=== PATIENT | female | born 1985 | race African-American/Black ===

== ENCOUNTER 2020-07-16 12:45 | Outpatient (RCR) | payer MEDICARE, MEDICAID, SELFPAY ==
--- NOTE | 2020-07-15 14:07 | P.HPPS_ITS ---
HPI Chief Complaint: depression Sources of Information: patient interviewed, chart reviewed and crisis/core team assessment reviewed HPI Narrative: Pt is a 35 year-old woman with hx of Bipolar Disorder, substance use who was referred to PHP by sba business development officer due to irritability, depressed mood. She was released from senior care September2019 for case of A&B. Pt reports regular use of PCP. She notes that she is more explosive and combative when using substances. She denies suicidal or homicidal ideation. She does not think she is particularly depressed but notes that irritability and explosive behaviors are problematic. Pt appeared with fluctuating levels of somnolence during our interview. She also appeared to have connectivity issues which limited this virtual assessment. We discussed starting mood stabilizer and other medications such as atypical antipsychotic for impulsive and explosive behaviors. Past Psychiatric History: Inpatient: one admission at [facility] few years ago Therapist: POPEYE Herbert Medical Evaluation Reviewed: Yes [facility] Surgical History (Updated 08/02/20 @ 11:[address] [facility]) History of lung surgery Meds/Allergies Allergies Allergies Allergy/AdvReac Type Severity Reaction Status Date / Time No Known Allergies Allergy Verified 08/02/20 11:50 Mental Status Exam Mental Status Exam Narrative: Appearance: MO casually groomed, fair hygiene, in NAD Behavior: calm, superficially cooperative Psychomotor: no agitation or retardation noted Speech: clear, normal rate/rhythm/volume, spontaneous TP: linear TC: no signs of psychosis, feeling better Mood: okay Affect:congruent, somewhat somnolent at times SI:none HI:none AH/VH:none Delusions:none Insight/judgment:poor x 2. Memory/cog:alert, oriented x 3.
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
--- NOTE | 2020-07-15 15:16 | PC.NURSE ---
Case opened in tx team
--- NOTE | 2020-07-16 12:03 | PC.NURSE ---
Spoke with pt after clinician reported that she had relapsed last night and the other reported she was not in second group. Discussed a referral to a substance use specific IOP. She was agreeable. She sound disoriented as if she just woke up. She denied using today or napping. She will finish groups today and DC to substance IOP.
--- NOTE | 2020-07-16 14:29 | PC.NURSE ---
The client called because she states that she wasn't let into the last group. I asked her if she did the morning groups and she stated that she was in groups all morning. I asked her if she spoke with Bree earlier and she said no. I told her I would have Bree call her.
--- NOTE | 2020-07-16 14:38 | PC.NURSE ---
Spoke with pt regarding previous phone conversation and her report of relapse. She seemed confused but reported she did remember. She reported that she relapsed with marjuana not PCP when she had reported she relapsed with PCP during the previous conversation. Discussed the referral for [facility] substance use IOP. Provided pt with [facility]'s information for her to call for an appointment. Sent referral to [facility].
--- NOTE | 2020-07-16 15:11 | PC.NURSE ---
Pt called back to ask why we kicked her out of the program. Explained that we did not kick her out but our clinical opinion is she would be best served by a substance use IOP. Informed her that the referral was sent to [facility] and she could call for an appointment. She agreed.
--- NOTE | 2020-07-19 09:42 | PC.NURSE ---
Spoke with foreign policy officer this morning to discuss the reason for referring the pt to [facility]. Pt had denied relapsing to foreign policy officer. Discussed the events of Sunday and recommended that pt attend [facility] and come back when she has completed that program. mortgage loan officer originator reported understanding.
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
== END 2020-07-16 23:55 | disposition home or self-care (01) ==
LOC: HO.PHPA 12:45
PROVIDERS: Visit Provider Psychiatry & Neurology Psychiatry
DX: F63.81 Intermittent explosive disorder (principal); F16.10 Hallucinogen abuse, uncomplicated
CPT/HCPCS: 90791; 90853

== ENCOUNTER → 2020-08-02 10:13 | Outpatient (BNVA) | payer MEDICARE, MEDICAID, SELFPAY | PROVIDERS: PCP Internal Medicine; Visit Provider Surgery | DX: E66.01 Morbid (severe) obesity due to excess calories (principal); Z68.43 Body mass index [BMI] 50.0-59.9, adult; Z71.3 Dietary counseling and surveillance | CPT/HCPCS: Q3014 ==

== ENCOUNTER 2020-08-03 15:21 | Outpatient (REF) | payer MEDICARE, MEDICAID, SELFPAY ==
--- NOTE | ~2020-08-03 | XR_ITS ---
EXAMINATION: XR CHEST CLINICAL INFORMATION: Obesity COMPARISON: None TECHNIQUE: 2 views of the chest were obtained. FINDINGS: The cardiac and mediastinal contours are normal. There is a 1.5 x 1.7 cm nodular density that projects over the left upper lobe. This may be artifactual related to overlapping vessels and left first rib costochondral cartilage. The lungs are otherwise clear. There is no pleural effusion or pneumothorax. Bony structures are unremarkable. XR/XR chest 2V IMPRESSION: 1.5 x 1.7 cm nodular density projecting over the left upper lobe. This may be artifactual related to overlapping vessels and left first rib costochondral cartilage. Apical lordotic view of the chest recommended.
[2020-08-03 15:56] LABS: MANUAL DIFF FLAG NO
[2020-08-03 16:01] LABS: Basophils Percent Auto 0.2 % (0-2); Eosinophils Absolute Auto 0.1 X10*3/uL (0.0-0.4); Eosinophils Percent Auto 0.6 % (0-4); Hematocrit 41.7 % (37-47); Hemoglobin 13.5 g/dl (12.0-16.0); Imm Gran Abs Auto 0.02 X10*3/uL (0.00-0.03); Imm Gran Pct Auto 0.2 % (0.0-0.4); Lymphocytes Absolute Auto 2.6 X10*3/uL (1.2-4.9); Lymphocytes Percent Auto 25.3 % (20-40); Mean Corpuscular HGB Conc 32.4 g/dl (31.0-35.0); Mean Corpuscular Hemoglobin 29.8 pg (27.0-33.0); Mean Corpuscular Volume 92.1 fL (80-98); Monocytes Absolute Auto 0.5 X10*3/uL (0.1-1.2); Monocytes Percent Auto 4.6 % (2-11); Neutrophils Percent Auto 69.1 % (45-73); Platelet Count 257 X10*3/uL (160-400); Red Blood Count 4.53 X10*6/uL (4.20-5.50); Red Cell Distribution Width 13.1 % (11.0-16.0); White Blood Count 10.1 X10*3/uL (4.8-10.8)
[2020-08-03 16:35] LABS: Alanine Aminotransferase 19 U/L (0-31); Albumin Level 4.1 g/dL (3.5-5.0); Alkaline Phosphatase 68 U/L (39-117); Anion Gap 14 (12-20); Aspartate Amino Transferase 16 U/L (5-31); Bilirubin Total 0.5 mg/dL (0.0-1.0); Blood Urea Nitrogen 8 mg/dL (9-16); C Reactive Protein 0.23 mg/dL (< or = 0.50); Calcium 9.1 mg/dL (8.4-10.2); Carbon Dioxide 27 mmol/L (22-29); Chloride 106 mmol/L (96-108); Cholesterol 211 mg/dL; Estimated Glomerular Filt Rate > 60; Glucose Random 91 mg/dL (60-115); HDL Cholesterol 65 mg/dL; LDL Cholesterol Calculated 129 mg/dl; Sodium 143 mmol/L (135-145); Total Protein 7.2 g/dL (6.5-8.0); Triglycerides 85 mg/dL
[2020-08-03 17:03] LABS: TSH reflex Free T4 0.97 uIU/mL (0.32-4.0); Vitamin D 25-OH Total 12.4 ng/mL (>30)
[2020-08-03 17:06] LABS: Folate 15.4 ng/mL (> or = 4.0); Vitamin B12 305 pg/mL (200-900)
[2020-08-03 17:35] LABS: Ferritin 71 ng/mL (10-122)
[2020-08-04 08:10] LABS: Estimated Average Glucose 103 mg/dL; Hemoglobin A1c % 5.2 %
[2020-08-04 09:02] LABS: Insulin Level Total 6.8 uIU/mL
[2020-08-04 17:51] LABS: Calcium (PTHI) 9.2 mg/dL (8.6-10.2); PTHI 49 pg/mL (14-64)
[2020-08-06 07:22] LABS: Zinc 71 mcg/dL (60-130)
[2020-08-07 10:57] LABS: Vitamin B1 16 nmol/L (8-30)
[2020-08-07 22:02] LABS: Vitamin A 62 mcg/dL (38-98)
== END 2020-08-03 15:22 | disposition home or self-care (01) ==
LOC: HO.LAB 15:21
PROVIDERS: PCP Internal Medicine; Visit Provider Surgery
DX: E66.01 Morbid (severe) obesity due to excess calories (principal)
CPT/HCPCS: 36415; 71046; 80053; 80061; 82306; 82607; 82728; 82746; 83036; 83525; 83970; 84425; 84443; 84590; 84630; 85025; 86140

== ENCOUNTER 2020-08-18 12:51 | Outpatient (REF) | payer OTHER, SELFPAY ==
--- NOTE | ~2020-08-18 | US_ITS ---
EXAMINATION: US COMPLETE ABDOMEN WITH LIVER ELASTOGRAPHY CLINICAL INFORMATION: Obesity COMPARISON: None. TECHNIQUE: Real-time imaging of the abdominal viscera. Noninvasive ultrasound liver fibrosis assessment is performed using Jolene ElastPQ point quantification shear wave elastography (pSWE) with a C5-2 MHz transducer. Multiple elastography samples are obtained. FINDINGS: PANCREAS: The visualized pancreatic head and body are normal in appearance. The remainder of the pancreas is obscured from visualization by the overlying bowel gas. ABDOMINAL AORTA: The proximal, middle, and distal aortic segments are normal in caliber. INFERIOR VENA CAVA: Visualized portions are normal. LIVER: Liver echotexture is increased. The liver is slightly enlarged. The liver contour is normal. No focal lesion or intrahepatic biliary duct dilatation. The right lobe measures 19 cm in length. The left lobe measures 15 cm in length. Portal flow is normal/hepatopedal Shear wave liver elastography median stiffness is 1.9 m/s (reference: normal median stiffness is 1.3 m/s or less). IQR/median stiffness to assess sampling precision is 0.5 (reference: good quality data set is IQR/median stiffness of 0.15 or less). GALLBLADDER: Normal. The gallbladder is physiologically distended without evidence of stones, sludge, polyps, wall thickening or pericholecystic fluid. COMMON BILE DUCT: Normal in caliber measuring 0.5 cm in diameter. RIGHT KIDNEY: Normal. No hydronephrosis. No renal calculi or focal parenchymal lesions. The kidney measures 10.5 cm in maximum dimension. LEFT KIDNEY: Normal. No hydronephrosis. No renal calculi or focal parenchymal lesions. The kidney measures 10.3 cm in maximum dimension. SPLEEN: Normal. The spleen measures 10.3 cm in maximum dimension. FREE FLUID: None. US/US abdomen comp w elastography IMPRESSION: 1. Impression: Enlarged echogenic liver probably representing fatty infiltration. Limited visualization of the tail of the pancreas. 2. Liver elastography: Limited due to sampling error. REFERENCE: Society of Radiologists in Ultrasound Liver Stiffness Thresholds (2020): LIVER STIFFNESS THRESHOLDS: *Liver Stiffness equal or less than 1.3 m/s: High probability of being normal. *Liver Stiffness less than 1.7 m/s: In the absence of other known clinical signs, rules out compensated advanced chronic liver disease. *Liver Stiffness 1.7-2.1 m/s: Suggestive of compensated advanced chronic liver disease but need further test for confirmation. *Liver Stiffness over 2.1 m/s: Rules in compensated advanced chronic liver disease. *Liver Stiffness over 2.4 m/s: Suggestive of clinically significant portal hypertension. QUALITY OF DATA SET: *IQR/Median value equal or less than 0.15 implies a quality data set. *IQR/Median value over 0.15 implies a poor quality data set. SIGNIFICANT CHANGE FROM PRIOR EXAM: Significant change if liver stiffness measurement is 10% or greater from prior exam. OTHER CONSIDERATIONS: The stage of liver fibrosis may be overestimated in the setting of acute hepatitis, liver inflammation, elevated liver function tests, hepatic vascular congestion, obstructive cholestasis, non-fasting state, and infiltrative diseases such as amyloidosis and lymphoma. In some patients with NAFLD, the liver stiffness thresholds for compensated advanced chronic liver disease may be lower. In causes other than viral hepatitis and NAFLD, liver stiffness thresholds are not well established.
== END 2020-08-18 12:52 | disposition home or self-care (01) ==
LOC: HO.US 12:51
PROVIDERS: Visit Provider Surgery
DX: E66.01 Morbid (severe) obesity due to excess calories (principal)
CPT/HCPCS: 76705; 76981

== ENCOUNTER → 2020-08-27 08:21 | Outpatient (BNVA) | payer OTHER, SELFPAY | PROVIDERS: PCP Internal Medicine; Visit Provider Surgery | DX: E66.01 Morbid (severe) obesity due to excess calories (principal); Z68.43 Body mass index [BMI] 50.0-59.9, adult | CPT/HCPCS: Q3014 ==

== ENCOUNTER → 2020-09-03 07:56 | Outpatient (BNVA) | payer OTHER, SELFPAY | PROVIDERS: PCP Internal Medicine; Visit Provider Dietitian, Registered ==

== ENCOUNTER → 2024-12-03 15:18 | Outpatient (BNVA) | payer OTHER, SELFPAY | PROVIDERS: PCP Internal Medicine; Visit Provider Anesthesiology | DX: M53.3 Sacrococcygeal disorders, not elsewhere classified (principal); M46.1 Sacroiliitis, not elsewhere classified; E66.01 Morbid (severe) obesity due to excess calories; Z68.44 Body mass index [BMI] 60.0-69.9, adult | CPT/HCPCS: 99202 ==

== ENCOUNTER 2025-01-27 06:25 | Outpatient (REF) | payer OTHER, SELFPAY ==
--- OUTSIDE RECORDS SUMMARY | 2024-11-03 07:30 | XMS_ITS ---
Author Organization [facility] [address] Address [address] [place] [address] Care Team Providers Care Stretcher Operator Name Role Phone VERITO LEGER Unavailable [phone] Encounters Encounter Location Date Provider Diagnosis [facility] [address] [place] [address] 11/03/2024 VERITO LEGER Plan Of Treatment Next Appt Details Provider Name:VERITO LEGER, 02/04/2025 11:00:00 AM, [address], [address], [place], [address], Progress Notes * Rajani PATTENDOB: 7 (39 yo F)Acc No.[id number]:11/03/2024 Patient: Lawrence FOFANA Rajani Provider: Magy LEGER NP :1985 A ge:39 Y S ex:Female Date:11/03/2024 Address:[address] [place], [place] [address] [id number] Subjective: * Chief Complaints: * * Medical History: Objective: * Vitals: Assessment: Plan: * Treatment: * Images: Billing Information: * Visit Code: * Procedure Codes: * Electronic signature of DARREN LEGER on 01/27/2025 at 06:27 AM EDT Sign off status: Pending * Provider: Magy LEGER NP Date: 11/03/2024 Generated for Printi ng/Faxing/eTransmitting on: 01/27/2025 06:27 AM EDT
--- OUTSIDE RECORDS SUMMARY | 2024-11-12 10:15 | XMS_ITS ---
Author Organization [facility] [address] Address [address] [place] [address] Care Team Providers Care Acre[employer] Reporter Name Role Phone KEVINVERITO SOMMER Unavailable [phone] Medications Medication SIG (Take, Route, Fr equency, Duration) Notes Start Date End Date Status Gabapentin 600 MG 1 tablet Orally Once a day Active Zepbound 2.5 MG/0.5ML 2.5 mg weekly Subc utaneous Weekly; Duration: 30 days Active Encounters Encounter Location Date Provider Diagnosis [facility] [address] [facility] [address] [place] [address] 11/12/2024 VERITO LEGER Morbid obesity due t o excess calories E66.01 ; BMI 60.0-69.9, adult Z68.44 ; Dietary counseling and surveillance Z71.3 ; Vitamin D deficiency E55.9 ; GABRIELLA (obstructive sleep apnea) G47.33 ; Daytime somnolence R40.0 ; Snoring R06.83 and Encounter for examination of blood pressure without abnormal findings Z01.30 Assessments Encounter Date Diagnosis (ICD Code) Assessment Notes Treatment Notes Treatment Clinical Notes Section Notes 11/12/2024 Morbid obesity due to excess calories (ICD-10 - E66.01) #Weight Management 11/12/2024 We discussed the new surmount GABRIELLA trial and indication for tirzepatide Euglycemic A1c Labs reviewed Sleep study Zepbound 2.5 Total time spent today was 30 minutes of which greater than 50% was spent on coordinating and counseling Patient has been found to be obese with a BMI of (62). Patient has class (3) obesity. We are a board certified obesity and weight management practice Patient has trialed behavioral modification, dietary restrictions and exercise for a minimum of 6 months The most recent [place] [employer] clinical endocrinologists and [place] [employer] guidelines recommend patients who have overweight BMI or obesity BMI, who also have metabolic syndrome, prediabetes, HLD, and other comorbidities or at risk of developing type 2 diabetes should aim for a weight loss goal of at least 10% of the baseline body weight Patient counseled regarding effects of GLP/GIP-1 agonists, and other FDA approved wgt loss meds with regards to a multifactorial approach of weight loss as mentioned above and not solely appetite suppression. Of note, some information is being carried forward from prior records for informational purposes only and is being cited so that efficiency, safety and quality of the patient's care is not compromised This note was prepared using voice recognition software and direct typing Please excuse inadvertent medical transcription supervisor or typing errors, or uncorrected word substitutions Although every attempt has been made by the provider to proofread this document, occasional misspellings and typographical errors may still be present Due to the previous pandemic, and the use of personal protective equipment (PPE) This may decrease voice recognition accuracy Inadvertent medical transcription supervisor errors may occur 11/12/2024 BMI 60.0-69.9, adult (ICD-10 - Z68.44) #Weight Management 11/12/2024 We discussed the new surmount GABRIELLA trial and indication for tirzepatide Euglycemic A1c Labs reviewed Sleep study Zepbound 2.5 Total time spent today was 30 minutes of which greater than 50% was spent on coordinating and counseling Patient has been found to be obese with a BMI of (62). Patient has class (3) obesity. We are a board certified obesity and weight management practice Patient has trialed behavioral modification, dietary restrictions and exercise for a minimum of 6 months The most recent [place] [employer] clinical endocrinologists and [place] [employer] guidelines recommend patients who have overweight BMI or obesity BMI, who also have metabolic syndrome, prediabetes, HLD, and other comorbidities or at risk of developing type 2 diabetes should aim for a weight loss goal of at least 10% of the baseline body weight Patient counseled regarding effects of GLP/GIP-1 agonists, and other FDA approved wgt loss meds with regards to a multifactorial approach of weight loss as mentioned above and not solely appetite suppression. Of note, some information is being carried forward from prior records for informational purposes only and is being cited so that efficiency, safety and quality of the patient's care is not compromised This note was prepared using voice recognition software and direct typing Please excuse inadvertent medical transcription supervisor or typing errors, or uncorrected word substitutions Although every attempt has been made by the provider to proofread this document, occasional misspellings and typographical errors may still be present Due to the previous pandemic, and the use of personal protective equipment (PPE) This may decrease voice recognition accuracy Inadvertent medical transcription supervisor errors may occur 11/12/2024 Dietary counseling and surveillance (ICD-10 - Z71.3) #Weight Management 11/12/2024 We discussed the new surmount GABRIELLA trial and indication for tirzepatide Euglycemic A1c Labs reviewed Sleep study Zepbound 2.5 Total time spent today was 30 minutes of which greater than 50% was spent on coordinating and counseling Patient has been found to be obese with a BMI of (62). Patient has class (3) obesity. We are a board certified obesity and weight management practice Patient has trialed behavioral modification, dietary restrictions and exercise for a minimum of 6 months The most recent [place] [employer] clinical endocrinologists and [place] [employer] guidelines recommend patients who have overweight BMI or obesity BMI, who also have metabolic syndrome, prediabetes, HLD, and other comorbidities or at risk of developing type 2 diabetes should aim for a weight loss goal of at least 10% of the baseline body weight Patient counseled regarding effects of GLP/GIP-1 agonists, and other FDA approved wgt loss meds with regards to a multifactorial approach of weight loss as mentioned above and not solely appetite suppression. Of note, some information is being carried forward from prior records for informational purposes only and is being cited so that efficiency, safety and quality of the patient's care is not compromised This note was prepared using voice recognition software and direct typing Please excuse inadvertent medical transcription supervisor or typing errors, or uncorrected word substitutions Although every attempt has been made by the provider to proofread this document, occasional misspellings and typographical errors may still be present Due to the previous pandemic, and the use of personal protective equipment (PPE) This may decrease voice recognition accuracy Inadvertent medical transcription supervisor errors may occur 11/12/2024 Vitamin D deficiency (ICD-10 - E55.9) #Weight Management 11/12/2024 We discussed the new surmount GABRIELLA trial and indication for tirzepatide Euglycemic A1c Labs reviewed Sleep study Zepbound 2.5 Total time spent today was 30 minutes of which greater than 50% was spent on coordinating and counseling Patient has been found to be obese with a BMI of (62). Patient has class (3) obesity. We are a board certified obesity and weight management practice Patient has trialed behavioral modification, dietary restrictions and exercise for a minimum of 6 months The most recent [place] [employer] clinical endocrinologists and [place] [employer] guidelines recommend patients who have overweight BMI or obesity BMI, who also have metabolic syndrome, prediabetes, HLD, and other comorbidities or at risk of developing type 2 diabetes should aim for a weight loss goal of at least 10% of the baseline body weight Patient counseled regarding effects of GLP/GIP-1 agonists, and other FDA approved wgt loss meds with regards to a multifactorial approach of weight loss as mentioned above and not solely appetite suppression. Of note, some information is being carried forward from prior records for informational purposes only and is being cited so that efficiency, safety and quality of the patient's care is not compromised This note was prepared using voice recognition software and direct typing Please excuse inadvertent medical transcription supervisor or typing errors, or uncorrected word substitutions Although every attempt has been made by the provider to proofread this document, occasional misspellings and typographical errors may still be present Due to the previous pandemic, and the use of personal protective equipment (PPE) This may decrease voice recognition accuracy Inadvertent medical transcription supervisor errors may occur 11/12/2024 GABRIELLA (obstructive sleep apnea) (ICD-10 - G47.33) #Weight Management 11/12/2024 We discussed the new surmount GABRIELLA trial and indication for tirzepatide Euglycemic A1c Labs reviewed Sleep study Zepbound 2.5 Total time spent today was 30 minutes of which greater than 50% was spent on coordinating and counseling Patient has been found to be obese with a BMI of (62). Patient has class (3) obesity. We are a board certified obesity and weight management practice Patient has trialed behavioral modification, dietary restrictions and exercise for a minimum of 6 months The most recent [place] [employer] of clinical endocrinologists and [place] [employer] guidelines recommend patients who have overweight BMI or obesity BMI, who also have metabolic syndrome, prediabetes, HLD, and other comorbidities or at risk of developing type 2 diabetes should aim for a weight loss goal of at least 10% of the baseline body weight Patient counseled regarding effects of GLP/GIP-1 agonists, and other FDA approved wgt loss meds with regards to a multifactorial approach of weight loss as mentioned above and not solely appetite suppression. Of note, some information is being carried forward from prior records for informational purposes only and is being cited so that efficiency, safety and quality of the patient's care is not compromised This note was prepared using voice recognition software and direct typing Please excuse inadvertent medical transcription supervisor or typing errors, or uncorrected word substitutions Although every attempt has been made by the provider to proofread this document, occasional misspellings and typographical errors may still be present Due to the previous pandemic, and the use of personal protective equipment (PPE) This may decrease voice recognition accuracy Inadvertent medical transcription supervisor errors may occur 11/12/2024 Daytime somnolence (ICD-10 - R40.0) #Weight Management 11/12/2024 We discussed the new surmount GABRIELLA trial and indication for tirzepatide Euglycemic A1c Labs reviewed Sleep study Zepbound 2.5 Total time spent today was 30 minutes of which greater than 50% was spent on coordinating and counseling Patient has been found to be obese with a BMI of (62). Patient has class (3) obesity. We are a board certified obesity and weight management practice Patient has trialed behavioral modification, dietary restrictions and exercise for a minimum of 6 months The most recent [place] [employer] of clinical endocrinologists and [place] [employer] guidelines recommend patients who have overweight BMI or obesity BMI, who also have metabolic syndrome, prediabetes, HLD, and other comorbidities or at risk of developing type 2 diabetes should aim for a weight loss goal of at least 10% of the baseline body weight Patient counseled regarding effects of GLP/GIP-1 agonists, and other FDA approved wgt loss meds with regards to a multifactorial approach of weight loss as mentioned above and not solely appetite suppression. Of note, some information is being carried forward from prior records for informational purposes only and is being cited so that efficiency, safety and quality of the patient's care is not compromised This note was prepared using voice recognition software and direct typing Please excuse inadvertent medical transcription supervisor or typing errors, or uncorrected word substitutions Although every attempt has been made by the provider to proofread this document, occasional misspellings and typographical errors may still be present Due to the previous pandemic, and the use of personal protective equipment (PPE) This may decrease voice recognition accuracy Inadvertent medical transcription supervisor errors may occur 11/12/2024 Snoring (ICD-10 - R06.83) #Weight Management 11/12/2024 We discussed the new surmount GABRIELLA trial and indication for tirzepatide Euglycemic A1c Labs reviewed Sleep study Zepbound 2.5 Total time spent today was 30 minutes of which greater than 50% was spent on coordinating and counseling Patient has been found to be obese with a BMI of (62). Patient has class (3) obesity. We are a board certified obesity and weight management practice Patient has trialed behavioral modification, dietary restrictions and exercise for a minimum of 6 months The most recent [place] [employer] of clinical endocrinologists and [place] [employer] end[employer]in[employer] guidelines recommend patients who have overweight BMI or obesity BMI, who also have metabolic syndrome, prediabetes, HLD, and other comorbidities or at risk of developing type 2 diabetes should aim for a weight loss goal of at least 10% of the baseline body weight Patient counseled regarding effects of GLP/GIP-1 agonists, and other FDA approved wgt loss meds with regards to a multifactorial approach of weight loss as mentioned above and not solely appetite suppression. Of note, some information is being carried forward from prior records for informational purposes only and is being cited so that efficiency, safety and quality of the patient's care is not compromised This note was prepared using voice recognition software and direct typing Please excuse inadvertent medical transcription supervisor or typing errors, or uncorrected word substitutions Although every attempt has been made by the provider to proofread this document, occasional misspellings and typographical errors may still be present Due to the previous pandemic, and the use of personal protective equipment (PPE) This may decrease voice recognition accuracy Inadvertent medical transcription supervisor errors may occur 11/12/2024 Encounter for examination of blood pressure without abnormal findings (ICD-10 - Z01.30) #Weight Management 11/12/2024 We discussed the new surmount GABRIELLA trial and indication for tirzepatide Euglycemic A1c Labs reviewed Sleep study Zepbound 2.5 Total time spent today was 30 minutes of which greater than 50% was spent on coordinating and counseling Patient has been found to be obese with a BMI of (62). Patient has class (3) obesity. We are a board certified obesity and weight management practice Patient has trialed behavioral modification, dietary restrictions and exercise for a minimum of 6 months The most recent [place] [employer] of clinical endocrinologists and [place] [employer] end[employer]in[employer] guidelines recommend patients who have overweight BMI or obesity BMI, who also have metabolic syndrome, prediabetes, HLD, and other comorbidities or at risk of developing type 2 diabetes should aim for a weight loss goal of at least 10% of the baseline body weight Patient counseled regarding effects of GLP/GIP-1 agonists, and other FDA approved wgt loss meds with regards to a multifactorial approach of weight loss as mentioned above and not solely appetite suppression. Of note, some information is being carried forward from prior records for informational purposes only and is being cited so that efficiency, safety and quality of the patient's care is not compromised This note was prepared using voice recognition software and direct typing Please excuse inadvertent medical transcription supervisor or typing errors, or uncorrected word substitutions Although every attempt has been made by the provider to proofread this document, occasional misspellings and typographical errors may still be present Due to the previous pandemic, and the use of personal protective equipment (PPE) This may decrease voice recognition accuracy Inadvertent medical transcription supervisor errors may occur Plan Of Treatment Medication Medication Name Sig Start Date Stop Date Notes Zepbound 2.5 MG/0.5ML 2.5 mg weekly Subc utaneous Weekly; Duration: 30 days Next Appt Details Provider Name:VERITO LEGER, 02/04/2025 11:00:00 AM, [address] [facility], [facility] [address], [place], [address], Progress Notes * Rajani KEYDOB: [birth year] (39 yo F)Acc No.[id number]:11/12/2024 Patient: Lawrence FOFANA Rajani Provider: Magy LEGER NP :[id number] A ge:39 Y S ex:Female Date:11/12/2024 Address:[address] [place], [place] [id number] Subjective: * Chief Complaints: * * HPI: C onstitutional: Patient is here today for a weight management followup visit Patient seen and examined. Full past medical history, social history, family history, allergies and current medications were reviewed and updated. Body composition analysis reviewed today #Weight Management 11/12/2024 24-hour dietary recall Breakfast: Lunch: Dinner: Snacking: Long hiatus from weight management had a baby approx 12 months ago In office A1c today 5.3 euglycemic Discussed with her insurance likely will not cover weight loss drugs and she does not have a type 2 diabetes angle to use Discussed bariatric options given her BMI and body habitus We discussed the new surmount GABRIELLA trial and indication for tirzepatide She would like to exhaust medication based options first which I would tend to agree Need to track down labs from [employer] Diet: no portion controlling/no calorie counting Exercise: Currently not tracking steps daily. Non-smoker tobacco, + THC ETOH use: denies 11/12/2024, Weight , BMI 08/05/2024, Weight 395lbs , BMI 62 04/15/2024, Weight 385lbs , BMI 62 09/05/2022: Weight 388 lbs, BMI 62 Comprehensive labs July 2024 Vitamin D is 14 TSH 0.81 CBC mostly stable Hemoglobin A1c of 4.9 Total cholesterol 216, LDL 115, HDL 84, triglycerides 89 PCP THONE Highest weight: now lbs Lowest weight: 200'slbs Goal weight: 200's lbs GABRIELLA screening, no previous screening, we reccomend screening. * ROS: R OS Negative unless otherwise stated in HPI. * Medical History: * Medications: T aking Gabapentin 600 MG Tablet 1 tablet Orally Once a day , Taking Zepbound 2.5 MG/0.5ML Solution Auto-injector 2.5 mg weekly Subcutaneous Weekly Objective: * Vitals: * Examination: G eneral Examination: GENERAL APPEARANCE: i n no acute distress, well developed, well nourished. H EAD: n ormocephalic, atraumatic. E YES: p upils equal, round, reactive to light and accommodation. E ARS: n ormal. O RAL CAVITY: m [place] moist. T HROAT: c lear. N AD/THYROID: n ad supple, full range of motion, no cervical lymphadenopathy. S KIN: n o suspicious lesions, warm and dry. H EART: n o murmurs, regular rate and rhythm, S1, S2 normal. L UNGS: c lear to auscultation bilaterally. A BDOMEN: n ormal, bowel sounds present, soft, nontender, nondistended. E XTREMITIES: n o clubbing, cyanosis, or edema. N EUROLOGIC: n onfocal, motor strength normal upper and lower extremities, sensory exam intact. Assessment: * Assessment: 1. M orbid obesity due to excess calories - E66.01 (Primary) 2 . B OR 60.0-69.9, adult - Z68.44 3 . D ietary counseling and surveillance - Z71.3 4 . V itamin D deficiency - E55.9 5 . O SA (obstructive sleep apnea) - G47.33 6 . D aytime somnolence - R40.0 7 . S noring - R06.83 8 . E ncounter for examination of blood pressure without abnormal findings - Z01.30 #Weight Management 11/12/2024 We discussed the new surmount GABRIELLA trial and indication for tirzepatide Euglycemic A1c Labs reviewed Sleep study Zepbound 2.5 Total time spent today was 30 minutes of which greater than 50% was spent on coordinating and counseling Patient has been found to be obese with a BMI of (62). Patient has class (3) obesity. We are a board certified obesity and weight management practice Patient has trialed behavioral modification, dietary restrictions and exercise for a minimum of 6 months The most recent [place] [employer] of clinical endocrinologists and [place] [employer] endocrinology guidelines recommend patients who have overweight BMI or obesity BMI, who also have metabolic syndrome, prediabetes, HLD, and other comorbidities or at risk of developing type 2 diabetes should aim for a weight loss goal of at least 10% of the baseline body weight Patient counseled regarding effects of GLP/GIP-1 agonists, and other FDA approved wgt loss meds with regards to a multifactorial approach of weight loss as mentioned above and not solely appetite suppression. Of note, some information is being carried forward from prior records for informational purposes only and is being cited so that efficiency, safety and quality of the patient's care is not compromised This note was prepared using voice recognition software and direct typing Please excuse inadvertent medical transcription supervisor or typing errors, or uncorrected word substitutions Although every attempt has been made by the provider to proofread this document, occasional misspellings and typographical errors may still be present Due to the previous pandemic, and the use of personal protective equipment (PPE) This may decrease voice recognition accuracy Inadvertent medical transcription supervisor errors may occur Plan: * Treatment: * Images: Billing Information: * Visit Code: * Procedure Codes: * Electronic signature of DARREN LEGER on 01/27/2025 at 06:27 AM EDT Sign off status: Pending * Provider: Magy LEGER NP Date: 0 11/12/2024 Generated for Pattiei ng/Nicole/eTransmitting on: 0 01/27/2025 06:27 AM EDT History and Physical Notes * HPI (History of Present Illness) Category Sub-Category Detail Notes Category Not es Constitutional Patient is here today for a weight management followup visit Patient seen and examined. Full past medical history, social history, family history, allergies and current medications were reviewed and updated. Body composition analysis reviewed today #Weight Management 11/12/2024 24-hour dietary recall Breakfast: Lunch: Dinner: Snacking: Long hiatus from weight management had a baby approx 12 months ago In office A1c today 5.3 euglycemic Discussed with her insurance likely will not cover weight loss drugs and she does not have a type 2 diabetes angle to use Discussed bariatric options given her BMI and body habitus We discussed the new surmount GABRIELLA trial and indication for tirzepatide She would like to exhaust medication based options first which I would tend to agree Need to track down labs from [employer] Diet: no portion controlling/no calorie counting Exercise: Currently not tracking steps daily. Non-smoker tobacco, + THC ETOH use: denies 11/12/2024, Weight , BMI 08/05/2024, Weight 395lbs , BMI 62 04/15/2024, Weight 385lbs , BMI 62 09/05/2022: Weight 388 lbs, BMI 62 Comprehensive labs July 2024 Vitamin D is 14 TSH 0.81 CBC mostly stable Hemoglobin A1c of 4.9 Total cholesterol 216, LDL 115, HDL 84, triglycerides 89 PCP THONE Highest weight: now lbs Lowest weight: 200'slbs Goal weight: 200's lbs GABRIELLA screening, no previous screening, we reccomend screening Examination Category Sub-Category Detail Notes Category Not es General Examination GENERAL APPEARANCE: in no ac [place] distress, well developed, well nourished HEAD: normocephalic, atrau matic EYES: pupils equal, round, reactive to light and accommodation EARS: normal THROAT: clear NECK/THYROID: neck supple, full ra nge of motion, no cervical lymphadenopathy HEART: no murmurs, regular rate and rhythm, S1, S2 normal LUNGS: clear to auscultatio n bilaterally ABDOMEN: normal, bowel sounds present, soft, nontender, nondistended NEUROLOGIC: nonfocal, motor stre ngth normal upper and lower extremities, sensory exam intact SKIN: no suspicious lesion s, warm and dry EXTREMITIES: no clubbing, cyanosi s, or edema ORAL CAVITY: mucosa moist
--- OUTSIDE RECORDS SUMMARY | 2025-01-22 09:00 | XMS_ITS | Encounter Summary ---
Author Organization [facility] Address [address] [place] [address] Care Team Providers Care Ultrasound Applications Specialist Name Role Phone Kane Yeager MD Primary Care Provider [phone] Reason for Visit * Reason Comments Obesity Encounter Details Date Type Department Care Team ([facility] Contact Info) Description 01/22/2025 9:00 AM EDT Nutrition Bariatric Surgery - [address] [place] [address] Gilda Frausto, RD 175 [facility] [address] [place] [address] Class 3 severe obesity without serious comorbidity with body mass index (BMI) of 60.0 to 69.9 in adult, unspecified obesity type (CMS/HCC V24, CMS/HCC V28) (Primary Dx) Social History Tobacco Use Types Packs/Day Years Used Date Smoking Tobacco: Never Smokeless Tobacco: Never Alcohol Use Standard Drinks/Week Comments No 0 (1 standard drink = 0.6 oz pur e alcohol) Comments No Sex and Gender Information Value Date Recorded Sex Assigned at Not on file Legal Sex Female 8:47 PM EST Gender Identity Not on file Sexual Orientation Not on file documented as of this encounter Last Filed Vital Signs Vital Sign Reading Time Taken Comments Blood Pressure - - Pulse - - Temperature - - Respiratory Rate - - Oxygen Saturation - - Inhaled Oxygen Concentration - - Weight 178 kg (392 lb) 01/22/2025 9:07 AM EDT Height - - Body Mass Index 61.4 01/16/2025 12:46 PM EDT documented in this encounter Progress Notes * Gilda Jett, LATISHA - 01/22/2025 9:00 AM EDT Patient-created Goals: 60-90 grams of protein per day from lean protein sources such as chicken, turkey, fish, beans, [place] yogurt (Brands: Okios, Ratio; 20-25 g protein), cottage cheese, eggs, tuna -try to hit th higher end if doing any strength training 20-30 grams protein each meal; 7-15 grams each snack A minimum of 3 meals per day. Preferably 3 small meals and 2 snacks spaced out over the course of the day (every 3-5 hours) Each meal and snack should include protein Protein shakes can replace a meal or snack, look for 20-30 grams of protein, less than 5 grams of added sugar (orgain, premiere) 30-45 minutes of moderate intensity exercise 4-5 times a week (cardio and strength training) [employer] is a great resource! Here are the program requirements that you can work on at your own pace: Labs: Your lab work has been ordered and is in the computer. You can go to [facility] at [address] [place] [address], [address], when you are ready. They open at 7:30am. You can also go to another [facility] [email or web address] lab that may be more conveniently located. No food/drink after midnight please - these are fasting labs. NO GUM, CANDY, MINTS, TUMS, OR WATER FOR ONE HOUR BEFORE! If you would like, you can join our Facebook group [facility]. (It has a picture of a yellow shirt with a tape measure). Education: Use the QR code below to watch the two videos Pre-op and Post-op You have two options for the education requirement: Support group (in-person): You must attend two support groups. Support groups are held every from 5:30-6:30pm [address] (our waiting room) [address] [place] [address]. No need to sign up, feel free to just show up. Or If you cannot attend the in-person support group, you may email me (email provided below) the answers to the questions below. Please include your name and with this email, and number the answers. Psych eval: You have two options for your psychological evaluation Dr. Tiffani Hernandez [phone] Kenny Mcallister [facility] [phone] Both are doing remote visits. Call either one and let them know you are in the [facility] and need a psych eval set up. Make sure to provide your name, number, and date. Psych eval: [facility]: I have referred you to [facility] for your psychological evaluation. If they do not reach out to you by mail in the next few weeks you can reach them at [phone]. Handouts: I am attaching a snack handout for ideas. Each snack should include one protein and one carb. Also attached is a meal handout (the one with the plate). Make sure to include a protein, lots of vegetables, and a small portion of a carb if you would like. Gilda Frausto RD Bariatric Dietitian [email or web address] [phone] F [phone] [address] [facility], [address] [place] [address] Gilda Frausto RDN Bariatric Dietitian [email or web address] [phone] F [phone] 175 [facility], [address] * Gilda Frausto RD - 01/22/2025 9:00 AM EDT INITIAL NUTRITION CONSULT Patient Name: Rajani Patten Date of : 1985 Date of Service: 01/22/2025 SURGEON: Kinza Solitario MD DESIRED SURGERY: Gastric Bypass CHIEF COMPLAINT: Obesity HISTORY: Rajani Patten is a 39 y.o. Female who presents for initial nutrition visit for Pre-op bariatric surgery Reports reasons for wanting to lose weight: To improve mobility, Overall Health, and To be able to be more active What made you decide to have weight loss surgery? Plateu after 50 lb lossw, cannot seem to lose anymore Do you know anyone who has had weight loss surgery? Mom Previous Weight Loss Methods: 30-1hr walking History of Dietitian/School Bus Technician Visits previously: RD when Ht Readings from Last 1 Encounters: 01/16/25 1.702 m (67 ) Wt today: Wt Readings from Last 2 Encounters: 01/22/25 178 kg (392 lb) 01/16/25 180 kg (397 lb) Body mass index is 61.4 kg/m??. Wt at initial: 397 Wt change since initial: -5 EBW = current - wt at BMI of 25: 392 - 160 = 232 Goal wt: 250 Highest/lowest wt: 398/175 Onset of obesity: 19 years Family history of obesity: mom Possible triggers to weight gain: maybe boredom eating Life events that lead to weight gain: been on depo since 19 years old, may have contributed to weight gain Factors making weight loss difficult: Three kids Weight change in the past year: lost a little , been more active EATING HABITS/DIET RECALL: Breakfast: (6-8 am) boiled egg, Cadence meals (2 eggs with kielbasa, peppers, strawberries, cottagecheese with mustard) Lunch: (12 pm): Steak and cheese egg rolls with fries, Chicken Ceaure salad, tuna wrap with chips, or carrots, yogurt parfaits Dinner: (6 pm): baked chicken with mac and cheese or rice, broccoli or string beans, salmon, steak,or hamburg, tuna sandwich, turkey sandwich Snacks: nutty bar Beverages: water (8-10 bottles) Dislikes: Dines out: 3 x week- steak and cheese egg rolls, pizza, micronesian food History of disordered eating: No Skips meals: No Pace of eating: Fast GI issues: Heartburn (if eat late night) Food allergies / intolerances: soy Exercise: walking 30-60 minutes, will do squats, high knees, jumping rope Reasons patient cannot / should not exercise: none SOCIAL HISTORY: Occupation: student womens volleyball coach Work schedule: day Lives with: two kids (14, 21 year old) Support system: friends, upsetter Who cooks at home/shopping: self Alcohol: No Smoking: Yes PAST MEDICAL HISTORY: Past Medical History: Diagnosis Date Chronic bilateral low back pain 09/29/2008 DX:Chronic bilateral low back pain Class 3 severe obesity with serious comorbidity and body mass index (BMI) of 45.0 to 49.9 in adult ([facility] V24, [facility] V28) 10/24/2006 DX:Class 3 severe obesity with serious comorbidity and body mass index (BMI) of 45.0 to 49.9 in adult ([facility]); COMMENT: previous pcp [facility] History of abnormal cervical Pap smear 03/12/2010 DX:History of abnormal cervical Pap smear; COMMENT: Per [facility] transfer records, no date given Marijuana abuse 08/17/2010 DX:Marijuana abuse Migraine with aura 10/24/2006 DX:Migraine with aura; COMMENT: had MRI in past IMO update Sacroiliitis, not elsewhere classified ([facility] V24) 09/21/2008 DX:Sacroiliitis, not elsewhere classified ([facility]); COMMENT: 10/20 mri lumber thoracic-Mild degenerative disc disease at T11-12 and L1-2. Mild facet arthropathy at L4-5. ACTIVE PROBLEM LIST: Patient Active Problem List Diagnosis Chronic bilateral low back pain Marijuana abuse Maternal morbid obesity in first trimester, antepartum ([facility] V24, [facility] V28) Migraine with aura Sacroiliitis, not elsewhere classified ([facility] V24) Class 3 severe obesity due to excess calories with body mass index (BMI) of 60.0 to 69.9 in adult ([facility] V24, [facility] V28) Localized osteoarthritis of left shoulder Localized osteoarthritis of both knees PAST SURGICAL HISTORY: Past Surgical History: Procedure Laterality Date SECTION PROCEDURE: HISTORICAL DELIVERY OTHER SURGICAL HISTORY 2008 PROCEDURE: HISTORY OTHER; COMMENT: tube thoracostomy PAST FAMILY HISTORY: Family History Problem Relation Name Age of Onset Other cancer Mother Multiple Myeloma Diabetes Mother Hypertension Mother No Known Problems Sister No Known Problems Brother Breast cancer Maternal Grandmother HTN ACTIVE MEDICATIONS: Current Outpatient Medications on File Prior to Visit Medication Sig Dispense Refill cyclobenzaprine (FLEXERIL) 10 mg tablet TAKE 1 TABLET BY MOUTH EVERYDAY AT BEDTIME 30 tablet 2 diclofenac (VOLTAREN) 75 mg EC tablet TAKE 1 TABLET BY MOUTH 2 TIMES DAILY FOR 180 DAYS. 60 tablet 0 gabapentin (NEURONTIN) 600 mg tablet TAKE 1 TABLET BY MOUTH THREE TIMES A DAY 90 tablet 1 hydrocortisone 1 % topical cream Apply topically 2 (two) times a day. 30 g 0 ketoconazole (NIZORAL) 2 % cream Apply topically 2 (two) times a day. 15 g 1 LORazepam (ATIVAN) 0.5 mg tablet Take 1-2 tablets (0.5-1 mg total) by mouth See administration instructions for 2 days. Take 30 minutes prior to procedure. 2 tablet 0 No current facility-administered medications on file prior to visit. ALLERGIES: Allergies Allergen Reactions Soy Nutrition diagnosis: Class IV obesity related to {Food/Nutrition related knowledge deficit as evidenced by A BMI 61 Patient-created Goals: 64 oz of water daily - preferably sipping throughout the day (no carbonation or sugar) 60-80 grams of protein per day from lean protein sources such as chicken, turkey, fish, beans, [place] yogurt (Brands: Okios, Ratio; 20-25 g protein), cottage cheese, eggs, tuna 20-30 grams protein each meal; 7-15 grams each snack A minimum of 3 meals per day. Preferably 3 small meals and 2 snacks spaced out over the course of the day (every 3-5 hours) Each meal and snack should include protein Protein shakes can replace a meal or snack, look for 20-30 grams of protein, less than 5 grams of added sugar (orgain, premiere) 30-45 minutes of moderate intensity exercise 4-5 times a week (cardio and strength training) [employer] is a great resource! Literature Provided: Build a healthy plate, Healthy snack handout, Protein content , Goal sheets, and RD contact information Interventions: Discuss the importance of eating at least 3 meals/day and the impact on metabolism, Discussed the importance of including protein with each meal and snack, Discussed the plate method and balanced meal, Discussed carbohydrate foods and impact on blood sugar levels, and Discussed theimportance of drinking enough water Nutrition assessment: Pt is 39 y.o. Female with h/o has a past medical history of Chronic bilaterallow back pain (09/29/2008), Class 3 severe obesity with serious comorbidity and body mass index (BMI) of 45.0 to 49.9 in adult ([facility] V24, [facility] V28) (10/24/2006), History of abnormal cervical Papsmear (03/12/2010), Marijuana abuse (08/17/2010), Migraine with aura (10/24/2006), and Sacroiliitis, not elsewhere classified ([facility] V24) (09/21/2008). Obesity class IV Stage of change/Barriers to understanding: Pt is motivated to make changes to diet and lifestyle and No barriers to understanding Concerns regarding considerations for bariatric surgery: Program requirements not met at this time Monitoring/Evaluation: Monitor weight, Monitor progress toward nutrition goals, and Monitor compliance with program overall RD to see patient for follow-up in 1 month Visit Time: Total time of the visit was spent face to face in medical nutritional therapy was [address] NUTRITION SERVICES documented in this encounter Plan of Treatment Upcoming Encounters Date Type Department Care Team (Late st Contact Info) Description 04/28/2025 8:30 AM EST Nutrition Bariatric Surgery - [place] [address] [address] 175 [facility] [address] [place] [address] documented as of this encounter Visit Diagnoses Diagnosis Class 3 severe obesity without serious comorbidity with body mass index (BMI) of 60.0 to 69.9 in adult, unspecified obesity type (CMS/HCC V24, CMS/HCC V28)- Primary documented in this encounter Care Teams Ultrasound Applications Specialist Relationship Specialty Start Date End Date Kane Yeager MD [address] [place] [id number] PCP - General Internal Medicine 03/09/21 documented as of this encounter
--- NOTE | ~2025-01-27 | FL_ITS ---
EXAMINATION: FL GUIDANCE ONLY HISTORY: M53.3 - Sacrococcygeal disorders, not elsewhere classified COMPARISON: None available. TECHNIQUE: Fluoroscopy time: 0.2 minutes. Cumulative Dose: 20.1 mGy. DAP: 0.175 mGym2 Images: 2. FINDINGS: Fluoroscopic spot films of the pelvis demonstrate needles and contrast material in the regions of the bilateral sacroiliac joints. FL/FL guidance in treatment room IMPRESSION: Fluoroscopy during procedure. Please see procedure report for additional information. Electronically signed by: Gilmar Fountain MD 01/27/2025 12:13 PM EDT
--- OUTSIDE RECORDS SUMMARY | 2025-01-27 06:27 | XMS_ITS | Clinical Summary ---
Author Organization [facility] Address [address] [place] [address] Care Team Providers Care Clinical Education Manager Name Role Phone Kane Yeager MD Primary Care Provider [phone] Allergies Active Allergy Reactions Severity Noted Date Comments Soy Allergy 06/23/2021 Medications Medication Sig Dispensed Refills Start Date End Date Status Vit-Fe Fumarate-FA ( Vitamin) 27-0.8 MG TabIndications:July re for Take 1 Tablet by mouth daily. 30 Tablet 11 12/20/2021 Active cyclobenzaprine (FLEXERIL) 10 MG tabletIndications:B ack pain, unspecified back location, unspecified back pain laterality, unspecified chronicity Take 1 Tablet by mouth at bedtime as needed for Muscle spasms for up to 30 days. 30 Tablet 0 09/10/2023 Active gabapentin (NEURONTIN) 400 MG capsule Take 1 Capsule by mouth at bedtime. 30 Capsule 5 09/12/2023 Active ketoconazole (NIZORAL) 2 % cream Apply topically to affected areas twice daily until resolution 30 g 1 03/03/2024 Active diclofenac (VOLTAREN) 75 MG EC tablet Take 1 Tablet by mouth 2 times daily for 180 days. 60 Tablet 1 03/03/2024 Active Active Problems Problem Noted Date Maternal morbid obesity in first trimest er, antepartum 10/18/2022 Overview: 10/16/22 BMI 60.81 - pt needs to establish care at [facility] for BMI >50. Marijuana abuse 08/17/2010 History of abnormal cervical Pap smear 1 Overview: Per [facility] transfer records, no date given Chronic bilateral low back pain 09/30/19 09 Sacroiliitis, not elsewhere classified 0 09/21/2008 Overview: 10/20 mri lumber thoracic-Mild degenerative disc disease at T11-12 and L1-2. Mild facet arthropathy at L4-5. Class 3 severe obesity due t o excess calories with body mass index (BMI) of 60.0 to 69.9 in adult 10/24/2006 Overview: previous pcp [facility] Migraine with aura, without mention of intractable migraine without mention of status migrainosus 10/24/2006 Overview: had MRI in past Immunizations Name Administration Dates Next Due COVID-19 (Pfizer) 10/13/2020,09/21/2020 DTaP 04/18/2004 HIB 08/01/2005 HPV (Gardasil) 04/18/2013, 1,01/04/2010,2008,05/17/2007 09/17/2008 Hepatitis B > 19yrs 12/24/2015,04/18/2013,2005 MMR (Shaovwg-Bkncn-Xcixvhu) 12/24/2015, 2 TD ([employer] ADULT S AND CHILDREN) 07/12/2005 Tdap 04/24/2023, 0,09/30/2016,2015 Family History Medical History Relation Name Comments No Known Problems Brother Cancer of the Breast Maternal Grandmother HTN Cancer, Other Mother Multiple Myelo ma Diabetes Mother Hypertension Mother No Known Problems Sister Relation Name Status Comments Brother Alive 1,healthy Father cueto snot know Maternal Grandmother Mother Sister Alive 2,one has hole in heart Social History Tobacco Use Types Packs/Day Years Used Date Smoking Tobacco: Never Passive Smoke Exposure: Yes Smokeless Tobacco: Never Tobacco Cessation:Counseling Given: Not Answered Comments:quit 10-13-07 Alcohol Use Standard Drinks/Week Comments No 0 (1 standard drink = 0.6 oz pur e alcohol) Sex Assigned at Date Recorded Not on file Job Start Date Occupation Industry Not on file Not on file Not on file Last Filed Vital Signs Vital Sign Reading Time Taken Comments Blood Pressure 113/72 11/12/2023 9:21 AM EDT Pulse 69 11/12/2023 9:21 AM EDT Temperature 36.6 C (97.8 F) 11/09/2022 1:52 PM EDT Respiratory Rate 20 03/26/2023 8:48 AM EST Oxygen Saturation 98% 11/09/2022 1:52 PM EDT Inhaled Oxygen Concentration - - Weight 174.1 kg (383 lb 12.8 oz) 11/12/2023 9:21 AM EDT Height 167.6 cm (5' 6 ) 11/12/2023 9:21 AM EDT Body Mass Index 61.95 11/12/2023 9:21 AM EDT Plan of Treatment Health Maintenance Due Date Last Done Comments DEPRESSION SCREEN 1998 CERVICAL CANCER SCREENING 03/11/2013 03/11/2010, BMI CHECK/ADVISE 05/14/2024 03/03/2024, 05/2023, 09/11/2023, Additional history exists Covid-19 Vaccine (2022-2 4 season) 2025 10/13/2020, 09/21/2020 INFLUENZA (#1) 2025 CHOLESTEROL SCREENING 08/09/2028 08/10/2023, 022 BASELINE HEALTH EXAM 18-39 11/11/202811/11, 05/20/2008, 10/24/2006 DTAP/TDAP/TD (7 - Td or Tdap) 04/24/2033, 03/14/2020, 09/30/2016, Additional history exists PNEUMOCOCCAL VACCINE FOR HIG H RISK PATIENTS (#1) 2051 Care Teams Clinical Education Manager Relationship Specialty Start Date End Date Kane Yeager MD [address] [place] [id number] PCP - General Internal Medicine 03/09/21
--- OUTSIDE RECORDS SUMMARY | 2025-01-27 06:27 | XMS_ITS | Encounter Summary ---
Author Organization [facility] Address [address] [place] [address] Care Team Providers Care Financial Institution Vice President Name Role Phone Antwan Hobbs Primary Care Provider Criselda Quintero MD Primary Care Provider Kane Guadarrama MD Primary Care Provider [phone] Encounter Details Date Type Department Care Team Description 05/23/2010 Car Repairer Report Medical Records [address] [place] [address] Haily Alexandra MD Social History Tobacco Use Types Packs/Day Years Used Date Smoking Tobacco: Passive Smo ke Exposure - Never Smoker Cigarettes Quit: Smokeless Tobacco: Never Comments:quit 10-13-07 Alcohol Use Standard Drinks/Week Comments No 0 (1 standard drink = 0.6 oz pur e alcohol) Sex Assigned at Date Recorded Not on file Job Start Date Occupation Industry Not on file Not on file Not on file documented as of this encounter Plan of Treatment Not on file documented as of this encounter Visit Diagnoses Not on filedocumented in this encounter Care Teams Financial Institution Vice President Relationship Specialty Start Date End Date Antwan Hobbs PCP - General 11/12/08 08/10/16 Criselda Walsh MD PCP - General Internal Medicine 08/11/16 1 Kane Yeager MD [address] [place] [id number] PCP - General Internal Medicine 03/09/21 documented as of this encounter
--- OUTSIDE RECORDS SUMMARY | 2025-01-27 06:27 | XMS_ITS | Clinical Summary ---
Author Organization [facility] Address [address] [place] [address] Phone Care Team Providers Care Pipe Washer Name Role Phone Obtain, Unable To Primary Care Provider Unavaila ble Allergies No known active allergies Medications No known medications Social History Tobacco Use Types Packs/Day Years Used Date Smoking Tobacco: Never Assessed Comments Unknown Sex and Gender Information Value Date Recorded Sex Assigned at Not on file Legal Sex Female 12:29 AM EST Gender Identity Not on file Sexual Orientation Not on file Last Filed Vital Signs Vital Sign Reading Time Taken Comments Blood Pressure 102/66 07/20/2016 4:51 AM EST Pulse 72 07/20/2016 4:51 AM EST Temperature 36.7 C (98.1 F) 07/20/2016 4:51 AM EST Respiratory Rate 18 07/20/2016 4:51 AM EST Oxygen Saturation 95% 07/20/2016 4:51 AM EST Inhaled Oxygen Concentration - - Weight - - Height - - Body Mass Index - - Plan of Treatment Health Maintenance Due Date Last Done Comments HIV screening 1999 Hepatitis C screening 2004 Tetanus adult (Td q 10,TDAP once) 2006 Cervical cancer screening 2007 Covid-19 vaccine series (2023- season) 2025 Influenza vaccine 01/12/2025 RSV Immunization (1 - 1-dose 75+ series) 2061 Meningococcal B Vaccine Aged Out No l onger eligible based on patient's age to complete this topic Meningococcal Vaccine Aged Out No vipin imelda eligible based on patient's age to complete this topic Pneumococcal Vaccine (2 - 49 years) Aged Out No longer eligible based on patient's age to complete this topic Insurance [id number] MEDICAID MEDICARE Member Subscriber Plan / Payer (Ef fective 2016-Present) Name:Sandor Rajani Member ID:[id number] Relation to Subscriber:Self Name:Rajani Patten Subscriber ID:[id number] Payer ID:[id number] Group ID:Not on file Type:Not on file Address: [address] [id number] MEDICAID MEDICARE [id number] MEDICAID MEDICARE Member Subscriber Plan / Payer (Ef fective 2016-Present) Name:Sandor Rajani Member ID:[id number] Relation to Subscriber:Self Name:Rajani Patten Subscriber ID:[id number] Payer ID:[id number] Group ID:Not on file Type:Not on file Address: [address] [id number] MEDICAID MEDICARE [id number] MEDICAID MEDICARE [id number] MEDICAID MEDICARE Member Subscriber Plan / Payer (Ef fective 2016-Present) Name:Santosh Pattenious Member ID:[id number] Relation to Subscriber:Self Name:Rajani Patten Subscriber ID:[id number] Payer ID:[id number] Group ID:Not on file Type:Not on file Address: [address] [id number] MEDICAID MEDICARE Care Teams Pipe Washer Relationship Specialty Start Date End Date Obtain, Unable To PCP - General 07/20/16
--- OUTSIDE RECORDS SUMMARY | 2025-01-27 06:28 | XMS_ITS | Encounter Summary ---
Author Organization [facility] Address [address] [place] [address] Care Team Providers Care Brush Cutter Name Role Phone Kane Yeager MD Primary Care Provider [phone] Reason for Visit * Reason Onset Date Comments PT-1 02/06/2023 APPT TOMORROW Encounter Details Date Type Department Care Team Description 02/06/2023 Telephone Adult Medicine [address] [address] Kane Yeager MD [address] [place] [id number] PT-1 (APPT TOMORROW 02-07-23) Social History Tobacco Use Types Packs/Day Years Used Date Smoking Tobacco: Never Cigarettes Qu it: 10/13/2007 Passive Smoke Exposure: Yes Smokeless Tobacco: Never Comments:quit 10-13-07 Alcohol Use Standard Drinks/Week Comments No 0 (1 standard drink = 0.6 oz pur e alcohol) Sex Assigned at Date Recorded Not on file Job Start Date Occupation Industry Not on file Not on file Not on file documented as of this encounter Miscellaneous Notes * Telephone Encounter - Dina Francisco M.A. - 02/09/2023 2:42 PM EDT Spoke to pt and informed her the website is telling me she is not eligible for transportation. She will call [employer] and call me back * Telephone Encounter - Ria Espinosa - 02/06/2023 12:11 PM EDT [employer] new provider or submitter number is [id number] Verify and document patients [place] Health insurance ID # (NOT [facility] ID): [id number] Payor: [employer] / Plan: FORMERLY [facility] [employer] / Product Type: HMO [id number] Patient mailing address: [address] [place] [address] [address] [facility] [address] Telephone Information: Work Phone Not on file. Pt. demographics verified? YES If not accurate, update registration. Is this a NEW request or a RENEWAL? NEW Name of treating facility: [facility] Name (first & last) of treating provider? required : [facility] What is the medical reason why the patient is seeing the above provider? FOLLOW UP Address/Zip code for treating provider: [address] [place] [id number] Phone # for treating provider: [phone] Is the provider in the [facility] network (do they accept [place] Health insurance)? YES What specialtly is this provider? ROAD MECH[employer]IC When is the visit scheduled for? 02-07- 10AM How often you will be seeing this particular provider? 5X PER MONTH Do you have friends or family who can transport you to this visit? NO If yes, do not complete request. Is there anything stopping you from using public transportation? If yes, explain. : YES Is there a medical reason (diagnosis) why you are unable to use public transportation? If yes, explain: yes - DISABLED, BACK PAIN AND WALKING ISSUES Does patient carry self-administered oxygen? NO Does patient require door through door or room to room service( ex: member cannot ambulate or wait independently outside their home/facility for transportation. NO Is this is for an Adult Day Program or Suboxone clinic no If yes to above what is arrival time N/A and what is departure time N/A If yes to above how many days a week? N/A Do you need a wheelchair van? NO If you use a wheelchair what is the height, width & length of the wheelchair? N/A Do you need an escort to accompany you? If yes, explain why. YES / SCIENCE [employer] Will you have an alternative pick-up address? NO Do you have a service animal? NO PT DOES NOT NEED RELEASE OF INFORMATION SIGNED documented in this encounter Plan of Treatment Not on file documented as of this encounter Visit Diagnoses Not on filedocumented in this encounter Care Teams Brush Cutter Relationship Specialty Start Date End Date Kane Yeager MD [address] [place] [id number] PCP - General Internal Medicine 03/09/21 documented as of this encounter
--- OUTSIDE RECORDS SUMMARY | 2025-01-27 06:28 | XMS_ITS | Patient Health Record ---
Author Organization [facility] [address] Address [address] [place] [address] Care Team Providers Care Senior Net Developer Architect Name Role Phone VERITO LEGER Unavailable [phone] ISREAL NASCIMENTO Unavailable [phone] FERNIE WEBB Unavailable [phone] Allergies No Known Allergies Reason For Referral Reason Home sleep study Diagnosis 1 Daytime somnolence ( R40.0) Diagnosis 2 Habitual snoring (R0 6.83) Referral Organization [facility] [address] Referring Provider First Name VERITO Referring Provider Last Name KEVINHOT Referring Provider Speciality Internal edicine Referred Provider Armida Duron Referred Provider Specialty Pulmonology General Notes Xiomara Garzon 03:38:29 PM > Pt given phone [phone] and referral faxed to [phone] Clinical Notes Lemuel Grayson 09/2024 03:00:15 PM > Scheduled for 10/13 at 9;30 am. Pt aware Referral Priority Routine Reason Bariatric surgery- Natalee Mandujano Diagnosis 1 Morbid obesity due t o excess calories (E66.01) Diagnosis 2 BMI 60.0-69.9, adult (Z68.44) Referral Organization [facility] [address] Referring Provider First Name VERITO Referring Provider Last Name BORHOT Referring Provider Speciality Internal edicine Referred Provider Specialty General Surg kevin General Notes Xiomara Garzon 05/2024 08:31:56 AM > Pt given phone [phone] referral faxed to [phone] Clinical Notes Lemuel Grayson 02:32:20 PM > The patient is scheduled for an appointment on 01/16 at 10:30 am. Pt aware Referral Priority Routine Medications Medication SIG (Take, Route, Fr equency, Duration) Notes Start Date End Date Status Gabapentin 600 MG 1 tablet Orally Once a day Active Zepbound 2.5 MG/0.5ML 2.5 mg weekly Subc utaneous Weekly; Duration: 30 days Active Problems Problem Type SNOMED Code ICD Code Onset Dates Problem Status W/U Status Risk Notes Problem Vitamin D deficiency (37230754) Vitamin D deficiency (E55.9) Active confirmed Problem Obstructive sleep apnea syndrome (14766118) GABRIELLA (obstructive sleep apnea) (G47.33) Active confirmed Problem Morbid obesity (577568532) Morbid obesity due to excess calories (E66.01) Active confirmed Problem Daytime somnolence (291686988826) Daytime somnolence (R40.0) Active confirmed Problem Body mass index 40+ - morbidly obese (513849714) BMI 60.0-69.9, adult (Z68.44) Active confirmed Problem Habitual snoring (157814616) Habitual snoring (R06.83) Active confirmed Vital Signs Heart Rate 70 /min 12/10/2024 Blood pressure diastolic 84 mm Hg 12/10/2024 Oximetry 98 % 12/10/2024 Height 66 in 12/10/2024 Blood pressure systolic 132 mm Hg 12/10/2024 Weight 395.8 lbs 12/10/2024 BMI 63.88 kg/m2 12/10/2024 Encounters Encounter Location Date Provider Diagnosis [facility] [address] [address] 04/15/2024 VERITO BORHOT Morbid obesity due t o excess calories E66.01 ; BMI 60.0-69.9, adult Z68.44 ; Dietary counseling and surveillance Z71.3 and Vitamin D deficiency E55.9 [facility] [address] [address] 08/05/2024 VERITO BORHOT Morbid obesity due t o excess calories E66.01 ; BMI 60.0-69.9, adult Z68.44 ; Dietary counseling and surveillance Z71.3 ; Vitamin D deficiency E55.9 ; GABRIELLA (obstructive sleep apnea) G47.33 ; Daytime somnolence R40.0 and Snoring R06.83 [facility] [address] [address] 12/10/2024 VERITO [place] Morbid obesity due t o excess calories E66.01 ; BMI 60.0-69.9, adult Z68.44 ; Dietary counseling and surveillance Z71.3 ; Vitamin D deficiency E55.9 ; GABRIELLA (obstructive sleep apnea) G47.33 ; Daytime somnolence R40.0 ; Snoring R06.83 and Encounter for examination of blood pressure without abnormal findings Z01.30 [facility] [address] [facility] [address] [place] [address] 03/03/2024 VERITO [place] [facility] [address] [place] [address] 04/21/2024 VERITO LEGER [facility] [address] [address] 09/16/2024 VERITOLAURA LEGER [facility] [address] [facility] [address] [address] 12/10/2024 VERITO LEGER GABRIELLA (obstructive sle ep apnea) G47.33 [facility] [address] [address] 12/12/2024 VERITO [place] [facility] [address] [facility] [address] [address] 06/03/2024 YUKIANDREIA AZAM [facility] [address] [address] 06/03/2024 FERNIE WEBB Assessments Encounter Date Diagnosis (ICD Code) Assessment Notes Treatment Notes Treatment Clinical Notes Section Notes 04/15/2024 Morbid obesity due to excess calories (ICD-10 - E66.01) #Weight Management 04/15/2024 Euglycemic A1c today 5.3 Track down labs from [place] Discussed weight loss options and bariatric surgical options Unfortunately where her insurance options are limited in terms of weight management medication based Total time spent today was 30 minutes of which greater than 50% was spent on coordinating and counseling Patient has been found to be obese with a BMI of (62). Patient has class (3) obesity. We are a board certified obesity and weight management practice Patient has trialed behavioral modification, dietary restrictions and exercise for a minimum of 6 months The most recent [place] [employer] of clinical endocrinologists and [place] [employer] endocrin[employer] guidelines recommend patients who [...] mentioned above and not solely appetite suppression. We have discussed the mechanism of GLP-1's/GIP, dual incretins, appetitite suppressants I think this would be fantastic option for her given her metabolic workup and body composition We have discussed the risks and benefits and side effects including/and not limited to Sarcopenia, intestinal obstruction, constipation, nausea, lethargy, headache Discussed importance of protein consumption for muscle maintenance as well as strength and resistance training ,probiotics, B12 complex biotin , iron and other nutrients, To help avoid telogen effluvium We have discussed the lifelong requirement of nutritional supplementation And adherence to an exercise regimen as well as importance of follow-up We did discuss the neurohormonal changes that are occurring with these medications and Need for long-term Continued usage Obesity is a chronic metabolic disease with multiple etiologies including genetic, metabolic, biochemical, intestinal biome related treatment of obesity after weight gain or after weight loss has stopped is justified Studies have shown that there is a decrease in the bodies metabolic rate and increase in hunger The patient understands and agrees There is no history of medullary thyroid cancer or multiple endocrine neoplasia There is also no history of cardiovascular disease, hypertension, palpitations, or arrhythmias In the setting of potential stimulant/amphetam ine use such as phentermine We have also discussed risks and benefits, and the use of compounded medications to help offset the national shortages as well as financial implications vs trade name drugs Patient was reassured and welcomed to the practice. We discussed that we stress a hollistic medical approach with emphasis on lifestyle modification. Patient was informed that a healthy lifestyle with exercise and good eating habits can help reduce his risk of medical complications. He is explained that obesity increases his risk of diabetes, cardiovascular disease, or organ damage. We spent a lot of time discussing the relationship between food, exercise, sleep, mental health and obesity. Patient was counseled on the importance EATING local, organic food when possible. Patient was educated on clean 15 and dirty dozen. I provided information about reading books called The Food Rules by Freeman Mcclain and Eat Fat Get Lean by Dr Seth Rose. Self education is important in the journey for weight management. Encourage good sleep hygiene Optimize sleep/wake cycles 6-8 hours nightly Keep lights on his stimulus during the day Darkroom and minimize nighttime interruptions Continue melatonin, other sleep aid medications Patient was offered diagnostic testing. We want to measure visceral adiposity, advanced body composition, adverse lipids, fatty acid balance, risk for heart disease and atherosclerosis, markers of inflammation and genetic susceptibility. Patient was counseled on weight management and was advised to lose weight using A. Meal Replacement Products We discussed the lifelong requirement of nutritional supplementation and adherence to an exercise regimen as well as importance of dietary follow-up Patient was educated on the replacement products called optifast. This is a good way of taking fixed amount of calories. It has been shown in studies to be ineffective weight management tool. We also recommend maintaining adequate protein intake and muscle composition, 1.5mg/kg This however has to be coupled with lifestyle intervention as well as laboratory data and EKG monitoring. It is impossible to know how a person will tolerate complete meal replacement. The side effects of meal replacement and weight loss could include syncopal attacks, dizziness, gallstones, potential cholecystectomy, possible heart attack and even . The benefits of meal replacement would be potential weight loss but no guarantees can be made. Meal replacement products are not covered by insurance. Once the patient has bought these products we cannot return them B. Lifestyle management which includes several strategies as below 1. Eat a low carbohydrate good fat good protein diet. Eliminate refined carbohydrates from the diet. Continue blood sugar and sugared beverages. Eat local organic when possible. Cook your own meals. Read food labels. None about healthy snacks. Portion control and food with low glycemic index 2. Exercise regularly. Try to get at least 6000 steps a day. Use a predominant to track activity level. Consider using apps like [employer], myfitnesspal, lose it, stick as needed for self-monitoring and weight management. Consider group exercises. Consider hiring a personal attendant. Regular exercise is sainz to sustainable health and prevents as a buffer against weight regain 3. Sleep is most important for healing. Tried to sleep at least 8 hours a night. A good quality sleep needs a sleep ritual with ideal room temperature of around 68. It might help to take a shower and have no electronics in the room and sleep in a very dark room without artificial light. Start her sleep routine and get up early in the morning and go to bed on time 4. Make a social connection. Surround yourself with positive people with positive energy. Connect with friends and family. 5. Get into the habit of meditating and mindfulness while doing everything. 6. Go outside and connect with nature. C. Prescription medications Patient was educated on the use of prescription medications for medical weight loss. This is a growing list and includes phentermine, Topamax,Qsymia, contrave, belviq and saxenda. All prescription medications could have side effects including but not limited to kidney stones, seizure disorder cardiac arrhythmias heart attack pancreatitis etc. etc.. Patient was encouraged to read the prescription insert and have coaching with their pharmacist and make an informed decision about taking medication and know that these medications are being prescribed with good intentions and we do not know how a patient would react to her medication. Sudden medications are FDA approved for weight loss and there is also off label use depending on patient's inability to afford medications in an attempt to lose weight D. Behavioral counseling was done to establish a relationship between food and an mood. Patient was provided information about local counseling and psychiatry and Dr Hernandez at [facility]. We would like to cover regular topics and build on low glycemic eating exercise mindful eating, using yoga and meditation along with deep breathing and connecting with friends and family. E. MASS PAT reviewed, Patient's current medications were reviewed and opinion was given on medication that can cause weight gain and can be substituted F. Patient was assessed for risk with obesity including and not limiting to atherosclerosis heart disease stroke kidney disease, restrictive lung disease, irritable bowel syndrome and overall mortality. Risk of developing prediabetes diabetes and metabolic syndrome was discussed G. Therapeutic plan: We have decided to make therapeutic plan which would include choosing wisely on calories restricting portion getting active, tracking weight, getting good quality sleep and working on time management H. Patient will follow up in (4) weeks for weight management Of note, some information is being carried forward from prior records for informational purposes only and is being cited so that efficiency, safety and quality of the patient's care is not compromised This note was prepared using voice recognition software and direct typing Please excuse inadvertent instructor looping or typing errors, or uncorrected word substitutions Although every attempt has been made by the provider to proofread this document, occasional misspellings and typographical errors may still be present Due to the previous pandemic, and the use of personal protective equipment (PPE) This may decrease voice recognition accuracy Inadvertent instructor looping errors may occur 04/15/2024 BMI 60.0-69.9, adult (ICD-10 - Z68.44) #Weight Management 04/15/2024 Euglycemic A1c today 5.3 Track down labs from [place] Discussed weight loss options and bariatric surgical options Unfortunately where her insurance options are limited in terms of weight management medication based Total time spent today was 30 minutes of which greater than 50% was spent on coordinating and counseling Patient has been found to be obese with a BMI of (62). Patient has class (3) obesity. We are a board certified obesity and weight management practice Patient has trialed behavioral modification, dietary restrictions and exercise for a minimum of 6 months The most recent [place] [employer] of clinical endocrinologists and [place] [employer] endocrin[employer] guidelines recommend patients who [...] mentioned above and not solely appetite suppression. We have discussed the mechanism of GLP-1's/GIP, dual incretins, appetitite suppressants I think this would be fantastic option for her given her metabolic workup and body composition We have discussed the risks and benefits and side effects including/and not limited to Sarcopenia, intestinal obstruction, constipation, nausea, lethargy, headache Discussed importance of protein consumption for muscle maintenance as well as strength and resistance training ,probiotics, B12 complex biotin , iron and other nutrients, To help avoid telogen effluvium We have discussed the lifelong requirement of nutritional supplementation And adherence to an exercise regimen as well as importance of follow-up We did discuss the neurohormonal changes that are occurring with these medications and Need for long-term Continued usage Obesity is a chronic metabolic disease with multiple etiologies including genetic, metabolic, biochemical, intestinal biome related treatment of obesity after weight gain or after weight loss has stopped is justified Studies have shown that there is a decrease in the bodies metabolic rate and increase in hunger The patient understands and agrees There is no history of medullary thyroid cancer or multiple endocrine neoplasia There is also no history of cardiovascular disease, hypertension, palpitations, or arrhythmias In the setting of potential stimulant/amphetam ine use such as phentermine We have also discussed risks and benefits, and the use of compounded medications to help offset the national shortages as well as financial implications vs trade name drugs Patient was reassured and welcomed to the practice. We discussed that we stress a hollistic medical approach with emphasis on lifestyle modification. Patient was informed that a healthy lifestyle with exercise and good eating habits can help reduce his risk of medical complications. He is explained that obesity increases his risk of diabetes, cardiovascular disease, or organ damage. We spent a lot of time discussing the relationship between food, exercise, sleep, mental health and obesity. Patient was counseled on the importance EATING local, organic food when possible. Patient was educated on clean 15 and dirty dozen. I provided information about reading books called The Food Rules by Freeman Mcclain and Eat Fat Get Lean by Dr Seth Rose. Self education is important in the journey for weight management. Encourage good sleep hygiene Optimize sleep/wake cycles 6-8 hours nightly Keep lights on his stimulus during the day Darkroom and minimize nighttime interruptions Continue melatonin, other sleep aid medications Patient was offered diagnostic testing. We want to measure visceral adiposity, advanced body composition, adverse lipids, fatty acid balance, risk for heart disease and atherosclerosis, markers of inflammation and genetic susceptibility. Patient was counseled on weight management and was advised to lose weight using A. Meal Replacement Products We discussed the lifelong requirement of nutritional supplementation and adherence to an exercise regimen as well as importance of dietary follow-up Patient was educated on the replacement products called optifast. This is a good way of taking fixed amount of calories. It has been shown in studies to be ineffective weight management tool. We also recommend maintaining adequate protein intake and muscle composition, 1.5mg/kg This however has to be coupled with lifestyle intervention as well as laboratory data and EKG monitoring. It is impossible to know how a person will tolerate complete meal replacement. The side effects of meal replacement and weight loss could include syncopal attacks, dizziness, gallstones, potential cholecystectomy, possible heart attack and even . The benefits of meal replacement would be potential weight loss but no guarantees can be made. Meal replacement products are not covered by insurance. Once the patient has bought these products we cannot return them B. Lifestyle management which includes several strategies as below 1. Eat a low carbohydrate good fat good protein diet. Eliminate refined carbohydrates from the diet. Continue blood sugar and sugared beverages. Eat local organic when possible. Cook your own meals. Read food labels. None about healthy snacks. Portion control and food with low glycemic index 2. Exercise regularly. Try to get at least 6000 steps a day. Use a predominant to track activity level. Consider using apps like [employer], [employer], lose it, stick as needed for self-monitoring and weight management. Consider group exercises. Consider hiring a personal attendant. Regular exercise is sainz to sustainable health and prevents as a buffer against weight regain 3. Sleep is most important for healing. Tried to sleep at least 8 hours a night. A good quality sleep needs a sleep ritual with ideal room temperature of around 68. It might help to take a shower and have no electronics in the room and sleep in a very dark room without artificial light. Start her sleep routine and get up early in the morning and go to bed on time 4. Make a social connection. Surround yourself with positive people with positive energy. Connect with friends and family. 5. Get into the habit of meditating and mindfulness while doing everything. 6. Go outside and connect with nature. C. Prescription medications Patient was educated on the use of prescription medications for medical weight loss. This is a growing list and includes phentermine, Topamax,Qsymia, contrave, belviq and saxenda. All prescription medications could have side effects including but not limited to kidney stones, seizure disorder cardiac arrhythmias heart attack pancreatitis etc. etc.. Patient was encouraged to read the prescription insert and have coaching with their pharmacist and make an informed decision about taking medication and know that these medications are being prescribed with good intentions and we do not know how a patient would react to her medication. Sudden medications are FDA approved for weight loss and there is also off label use depending on patient's inability to afford medications in an attempt to lose weight D. Behavioral counseling was done to establish a relationship between food and an mood. Patient was provided information about local counseling and psychiatry and Dr Hernandez at [facility]. We would like to cover regular topics and build on low glycemic eating exercise mindful eating, using yoga and meditation along with deep breathing and connecting with friends and family. E. MASS PAT reviewed, Patient's current medications were reviewed and opinion was given on medication that can cause weight gain and can be substituted F. Patient was assessed for risk with obesity including and not limiting to atherosclerosis heart disease stroke kidney disease, restrictive lung disease, irritable bowel syndrome and overall mortality. Risk of developing prediabetes diabetes and metabolic syndrome was discussed G. Therapeutic plan: We have decided to make therapeutic plan which would include choosing wisely on calories restricting portion getting active, tracking weight, getting good quality sleep and working on time management H. Patient will follow up in (4) weeks for weight management Of note, some information is being carried forward from prior records for informational purposes only and is being cited so that efficiency, safety and quality of the patient's care is not compromised This note was prepared using voice recognition software and direct typing Please excuse inadvertent instructor looping or typing errors, or uncorrected word substitutions Although every attempt has been made by the provider to proofread this document, occasional misspellings and typographical errors may still be present Due to the previous pandemic, and the use of personal protective equipment (PPE) This may decrease voice recognition accuracy Inadvertent instructor looping errors may occur 08/05/2024 Morbid obesity due to excess calories (ICD-10 - E66.01) #Weight Management 06/04/2024 We discussed the new [place] GABRIELLA trial [...] minimum of 6 months The most recent [place] [employer] of clinical endocrinologists and [place] [employer] endocrin[employer] guidelines recommend patients who [...] software and direct typing Please excuse inadvertent instructor looping or typing errors, or uncorrected word substitutions Although every attempt has been made by the provider to proofread this document, occasional misspellings and typographical errors may still be present Due to the previous pandemic, and the use of personal protective equipment (PPE) This may decrease voice recognition accuracy Inadvertent instructor looping errors may occur 08/05/2024 BMI 60.0-69.9, adult (ICD-10 - Z68.44) #Weight Management 06/04/2024 We discussed the new [place] GABRIELLA trial [...] minimum of 6 months The most recent [place] [employer] of clinical endocrinologists and [place] [employer] end[employer]in[employer] guidelines recommend patients who [...] software and direct typing Please excuse inadvertent instructor looping or typing errors, or uncorrected word substitutions Although every attempt has been made by the provider to proofread this document, occasional misspellings and typographical errors may still be present Due to the previous pandemic, and the use of personal protective equipment (PPE) This may decrease voice recognition accuracy Inadvertent instructor looping errors may occur 12/10/2024 Morbid obesity due to excess calories (ICD-10 - E66.01) #Weight Management 12/10/2024 Will track down sleep study report Likely has obesity hypoventilation syndrome and GABRIELLA Will refer to bariatrics We discussed the new surmount GABRIELLA trial and indication for tirzepatide Total time spent today was 30 minutes of which greater than 50% was spent on coordinating and counseling Patient has been found to be obese with a BMI of (62). Patient has class (3) obesity. We are a board certified obesity and weight management practice Patient has trialed behavioral modification, dietary restrictions and exercise for a minimum of 6 months The most recent [place] [employer] clinical endocrinologists and [place] [employer] guidelines recommend patients who [...] software and direct typing Please excuse inadvertent instructor looping or typing errors, or uncorrected word substitutions Although every attempt has been made by the provider to proofread this document, occasional misspellings and typographical errors may still be present Due to the previous pandemic, and the use of personal protective equipment (PPE) This may decrease voice recognition accuracy Inadvertent instructor looping errors may occur 08/05/2024 Dietary counseling and surveillance (ICD-10 - Z71.3) #Weight Management 06/04/2024 We discussed the new surmount GABRIELLA trial [...] minimum of 6 months The most recent [place] [employer]ocrinologists and [place] [employer] guidelines recommend patients who [...] software and direct typing Please excuse inadvertent instructor looping or typing errors, or uncorrected word substitutions Although every attempt has been made by the provider to proofread this document, occasional misspellings and typographical errors may still be present Due to the previous pandemic, and the use of personal protective equipment (PPE) This may decrease voice recognition accuracy Inadvertent instructor looping errors may occur 04/15/2024 Dietary counseling and surveillance (ICD-10 - Z71.3) #Weight Management 04/15/2024 Euglycemic A1c today 5.3 Track down labs from [place] Discussed weight loss options and bariatric surgical options Unfortunately where her insurance options are limited in terms of weight management medication based Total time spent today was 30 minutes of which greater than 50% was spent on coordinating and counseling Patient has been found to be obese with a BMI of (62). Patient has class (3) obesity. We are a board certified obesity and weight management practice Patient has trialed behavioral modification, dietary restrictions and exercise for a minimum of 6 months The most recent [place] [employer]ocrinologists and [place] [employer] guidelines recommend patients who [...] mentioned above and not solely appetite suppression. We have discussed the mechanism of GLP-1's/GIP, dual incretins, appetitite suppressants I think this would be fantastic option for her given her metabolic workup and body composition We have discussed the risks and benefits and side effects including/and not limited to Sarcopenia, intestinal obstruction, constipation, nausea, lethargy, headache Discussed importance of protein consumption for muscle maintenance as well as strength and resistance training ,probiotics, B12 complex biotin , iron and other nutrients, To help avoid telogen effluvium We have discussed the lifelong requirement of nutritional supplementation And adherence to an exercise regimen as well as importance of follow-up We did discuss the neurohormonal changes that are occurring with these medications and Need for long-term Continued usage Obesity is a chronic metabolic disease with multiple etiologies including genetic, metabolic, biochemical, intestinal biome related treatment of obesity after weight gain or after weight loss has stopped is justified Studies have shown that there is a decrease in the bodies metabolic rate and increase in hunger The patient understands and agrees There is no history of medullary thyroid cancer or multiple endocrine neoplasia There is also no history of cardiovascular disease, hypertension, palpitations, or arrhythmias In the setting of potential stimulant/amphetam ine use such as phentermine We have also discussed risks and benefits, and the use of compounded medications to help offset the national shortages as well as financial implications vs trade name drugs Patient was reassured and welcomed to the practice. We discussed that we stress a hollistic medical approach with emphasis on lifestyle modification. Patient was informed that a healthy lifestyle with exercise and good eating habits can help reduce his risk of medical complications. He is explained that obesity increases his risk of diabetes, cardiovascular disease, or organ damage. We spent a lot of time discussing the relationship between food, exercise, sleep, mental health and obesity. Patient was counseled on the importance EATING local, organic food when possible. Patient was educated on clean 15 and dirty dozen. I provided information about reading books called The Food Rules by Freeman Mcclain and Eat Fat Get Lean by Dr Seth Rose. Self education is important in the journey for weight management. Encourage good sleep hygiene Optimize sleep/wake cycles 6-8 hours nightly Keep lights on his stimulus during the day Darkroom and minimize nighttime interruptions Continue melatonin, other sleep aid medications Patient was offered diagnostic testing. We want to measure visceral adiposity, advanced body composition, adverse lipids, fatty acid balance, risk for heart disease and atherosclerosis, markers of inflammation and genetic susceptibility. Patient was counseled on weight management and was advised to lose weight using A. Meal Replacement Products We discussed the lifelong requirement of nutritional supplementation and adherence to an exercise regimen as well as importance of dietary follow-up Patient was educated on the replacement products called optifast. This is a good way of taking fixed amount of calories. It has been shown in studies to be ineffective weight management tool. We also recommend maintaining adequate protein intake and muscle composition, 1.5mg/kg This however has to be coupled with lifestyle intervention as well as laboratory data and EKG monitoring. It is impossible to know how a person will tolerate complete meal replacement. The side effects of meal replacement and weight loss could include syncopal attacks, dizziness, gallstones, potential cholecystectomy, possible heart attack and even . The benefits of meal replacement would be potential weight loss but no guarantees can be made. Meal replacement products are not covered by insurance. Once the patient has bought these products we cannot return them B. Lifestyle management which includes several strategies as below 1. Eat a low carbohydrate good fat good protein diet. Eliminate refined carbohydrates from the diet. Continue blood sugar and sugared beverages. Eat local organic when possible. Cook your own meals. Read food labels. None about healthy snacks. Portion control and food with low glycemic index 2. Exercise regularly. Try to get at least 6000 steps a day. Use a predominant to track activity level. Consider using apps like [employer], [employer], lose it, stick as needed for self-monitoring and weight management. Consider group exercises. Consider hiring a personal attendant. Regular exercise is sainz to sustainable health and prevents as a buffer against weight regain 3. Sleep is most important for healing. Tried to sleep at least 8 hours a night. A good quality sleep needs a sleep ritual with ideal room temperature of around 68. It might help to take a shower and have no electronics in the room and sleep in a very dark room without artificial light. Start her sleep routine and get up early in the morning and go to bed on time 4. Make a social connection. Surround yourself with positive people with positive energy. Connect with friends and family. 5. Get into the habit of meditating and mindfulness while doing everything. 6. Go outside and connect with nature. C. Prescription medications Patient was educated on the use of prescription medications for medical weight loss. This is a growing list and includes phentermine, Topamax,Qsymia, contrave, belviq and saxenda. All prescription medications could have side effects including but not limited to kidney stones, seizure disorder cardiac arrhythmias heart attack pancreatitis etc. etc.. Patient was encouraged to read the prescription insert and have coaching with their pharmacist and make an informed decision about taking medication and know that these medications are being prescribed with good intentions and we do not know how a patient would react to her medication. Sudden medications are FDA approved for weight loss and there is also off label use depending on patient's inability to afford medications in an attempt to lose weight D. Behavioral counseling was done to establish a relationship between food and an mood. Patient was provided information about local counseling and psychiatry and Dr Hernandez at [facility]. We would like to cover regular topics and build on low glycemic eating exercise mindful eating, using yoga and meditation along with deep breathing and connecting with friends and family. E. MASS PAT reviewed, Patient's current medications were reviewed and opinion was given on medication that can cause weight gain and can be substituted F. Patient was assessed for risk with obesity including and not limiting to atherosclerosis heart disease stroke kidney disease, restrictive lung disease, irritable bowel syndrome and overall mortality. Risk of developing prediabetes diabetes and metabolic syndrome was discussed G. Therapeutic plan: We have decided to make therapeutic plan which would include choosing wisely on calories restricting portion getting active, tracking weight, getting good quality sleep and working on time management H. Patient will follow up in (4) weeks for weight management Of note, some information is being carried forward from prior records for informational purposes only and is being cited so that efficiency, safety and quality of the patient's care is not compromised This note was prepared using voice recognition software and direct typing Please excuse inadvertent instructor looping or typing errors, or uncorrected word substitutions Although every attempt has been made by the provider to proofread this document, occasional misspellings and typographical errors may still be present Due to the previous pandemic, and the use of personal protective equipment (PPE) This may decrease voice recognition accuracy Inadvertent instructor looping errors may occur 12/10/2024 BMI 60.0-69.9, adult (ICD-10 - Z68.44) #Weight Management 12/10/2024 Will track down sleep study report Likely has obesity hypoventilation syndrome and GABRIELLA Will refer to bariatrics We discussed the new surmount GABRIELLA trial and indication for tirzepatide Total time spent today was 30 minutes of which greater than 50% was spent on coordinating and counseling Patient has been found to be obese with a BMI of (62). Patient has class (3) obesity. We are a board certified obesity and weight management practice Patient has trialed behavioral modification, dietary restrictions and exercise for a minimum of 6 months The most recent [place] [employer] of clinical endocrinologists and [place] [employer] guidelines recommend patients who [...] software and direct typing Please excuse inadvertent instructor looping or typing errors, or uncorrected word substitutions Although every attempt has been made by the provider to proofread this document, occasional misspellings and typographical errors may still be present Due to the previous pandemic, and the use of personal protective equipment (PPE) This may decrease voice recognition accuracy Inadvertent instructor looping errors may occur 12/10/2024 GABRIELLA (obstructive sleep apnea) (ICD-10 - G47.33) Electronic Prior Authorization was requested for Zepbound 2.5 MG/0.5ML Solution. Provider can order medication once approval received. 04/15/2024 Vitamin D deficiency (ICD-10 - E55.9) #Weight Management 04/15/2024 Euglycemic A1c today 5.3 Track down labs from [place] Discussed weight loss options and bariatric surgical options Unfortunately where her insurance options are limited in terms of weight management medication based Total time spent today was 30 minutes of which greater than 50% was spent on coordinating and counseling Patient has been found to be obese with a BMI of (62). Patient has class (3) obesity. We are a board certified obesity and weight management practice Patient has trialed behavioral modification, dietary restrictions and exercise for a minimum of 6 months The most recent [place] [employer] of clinical endocrinologists and [place] [employer]in[employer] guidelines recommend patients who [...] mentioned above and not solely appetite suppression. We have discussed the mechanism of GLP-1's/GIP, dual incretins, appetitite suppressants I think this would be fantastic option for her given her metabolic workup and body composition We have discussed the risks and benefits and side effects including/and not limited to Sarcopenia, intestinal obstruction, constipation, nausea, lethargy, headache Discussed importance of protein consumption for muscle maintenance as well as strength and resistance training ,probiotics, B12 complex biotin , iron and other nutrients, To help avoid telogen effluvium We have discussed the lifelong requirement of nutritional supplementation And adherence to an exercise regimen as well as importance of follow-up We did discuss the neurohormonal changes that are occurring with these medications and Need for long-term Continued usage Obesity is a chronic metabolic disease with multiple etiologies including genetic, metabolic, biochemical, intestinal biome related treatment of obesity after weight gain or after weight loss has stopped is justified Studies have shown that there is a decrease in the bodies metabolic rate and increase in hunger The patient understands and agrees There is no history of medullary thyroid cancer or multiple endocrine neoplasia There is also no history of cardiovascular disease, hypertension, palpitations, or arrhythmias In the setting of potential stimulant/amphetam ine use such as phentermine We have also discussed risks and benefits, and the use of compounded medications to help offset the national shortages as well as financial implications vs trade name drugs Patient was reassured and welcomed to the practice. We discussed that we stress a hollistic medical approach with emphasis on lifestyle modification. Patient was informed that a healthy lifestyle with exercise and good eating habits can help reduce his risk of medical complications. He is explained that obesity increases his risk of diabetes, cardiovascular disease, or organ damage. We spent a lot of time discussing the relationship between food, exercise, sleep, mental health and obesity. Patient was counseled on the importance EATING local, organic food when possible. Patient was educated on clean 15 and dirty dozen. I provided information about reading books called The Food Rules by Freeman Mcclain and Eat Fat Get Lean by Dr Seth Rose. Self education is important in the journey for weight management. Encourage good sleep hygiene Optimize sleep/wake cycles 6-8 hours nightly Keep lights on his stimulus during the day Darkroom and minimize nighttime interruptions Continue melatonin, other sleep aid medications Patient was offered diagnostic testing. We want to measure visceral adiposity, advanced body composition, adverse lipids, fatty acid balance, risk for heart disease and atherosclerosis, markers of inflammation and genetic susceptibility. Patient was counseled on weight management and was advised to lose weight using A. Meal Replacement Products We discussed the lifelong requirement of nutritional supplementation and adherence to an exercise regimen as well as importance of dietary follow-up Patient was educated on the replacement products called optifast. This is a good way of taking fixed amount of calories. It has been shown in studies to be ineffective weight management tool. We also recommend maintaining adequate protein intake and muscle composition, 1.5mg/kg This however has to be coupled with lifestyle intervention as well as laboratory data and EKG monitoring. It is impossible to know how a person will tolerate complete meal replacement. The side effects of meal replacement and weight loss could include syncopal attacks, dizziness, gallstones, potential cholecystectomy, possible heart attack and even . The benefits of meal replacement would be potential weight loss but no guarantees can be made. Meal replacement products are not covered by insurance. Once the patient has bought these products we cannot return them B. Lifestyle management which includes several strategies as below 1. Eat a low carbohydrate good fat good protein diet. Eliminate refined carbohydrates from the diet. Continue blood sugar and sugared beverages. Eat local organic when possible. Cook your own meals. Read food labels. None about healthy snacks. Portion control and food with low glycemic index 2. Exercise regularly. Try to get at least 6000 steps a day. Use a predominant to track activity level. Consider using apps like [employer], [employer], lose it, stick as needed for self-monitoring and weight management. Consider group exercises. Consider hiring a personal attendant. Regular exercise is sainz to sustainable health and prevents as a buffer against weight regain 3. Sleep is most important for healing. Tried to sleep at least 8 hours a night. A good quality sleep needs a sleep ritual with ideal room temperature of around 68. It might help to take a shower and have no electronics in the room and sleep in a very dark room without artificial light. Start her sleep routine and get up early in the morning and go to bed on time 4. Make a social connection. Surround yourself with positive people with positive energy. Connect with friends and family. 5. Get into the habit of meditating and mindfulness while doing everything. 6. Go outside and connect with nature. C. Prescription medications Patient was educated on the use of prescription medications for medical weight loss. This is a growing list and includes phentermine, Topamax,Qsymia, contrave, belviq and saxenda. All prescription medications could have side effects including but not limited to kidney stones, seizure disorder cardiac arrhythmias heart attack pancreatitis etc. etc.. Patient was encouraged to read the prescription insert and have coaching with their pharmacist and make an informed decision about taking medication and know that these medications are being prescribed with good intentions and we do not know how a patient would react to her medication. Sudden medications are FDA approved for weight loss and there is also off label use depending on patient's inability to afford medications in an attempt to lose weight D. Behavioral counseling was done to establish a relationship between food and an mood. Patient was provided information about local counseling and psychiatry and Dr Hernandez at [facility]. We would like to cover regular topics and build on low glycemic eating exercise mindful eating, using yoga and meditation along with deep breathing and connecting with friends and family. E. MASS PAT reviewed, Patient's current medications were reviewed and opinion was given on medication that can cause weight gain and can be substituted F. Patient was assessed for risk with obesity including and not limiting to atherosclerosis heart disease stroke kidney disease, restrictive lung disease, irritable bowel syndrome and overall mortality. Risk of developing prediabetes diabetes and metabolic syndrome was discussed G. Therapeutic plan: We have decided to make therapeutic plan which would include choosing wisely on calories restricting portion getting active, tracking weight, getting good quality sleep and working on time management H. Patient will follow up in (4) weeks for weight management Of note, some information is being carried forward from prior records for informational purposes only and is being cited so that efficiency, safety and quality of the patient's care is not compromised This note was prepared using voice recognition software and direct typing Please excuse inadvertent instructor looping or typing errors, or uncorrected word substitutions Although every attempt has been made by the provider to proofread this document, occasional misspellings and typographical errors may still be present Due to the previous pandemic, and the use of personal protective equipment (PPE) This may decrease voice recognition accuracy Inadvertent instructor looping errors may occur 08/05/2024 Vitamin D deficiency (ICD-10 - E55.9) #Weight Management 06/04/2024 We discussed the new surmount GABRIELLA trial [...] minimum of 6 months The most recent [place] [employer] of clinical endocrinologists and [place] [employer]in[employer] guidelines recommend patients who [...] software and direct typing Please excuse inadvertent instructor looping or typing errors, or uncorrected word substitutions Although every attempt has been made by the provider to proofread this document, occasional misspellings and typographical errors may still be present Due to the previous pandemic, and the use of personal protective equipment (PPE) This may decrease voice recognition accuracy Inadvertent instructor looping errors may occur 12/10/2024 Dietary counseling and surveillance (ICD-10 - Z71.3) #Weight Management 12/10/2024 Will track down sleep study report Likely has obesity hypoventilation syndrome and GABRIELLA Will refer to bariatrics We discussed the new surmount GABRIELLA trial and indication for tirzepatide Total time spent today was 30 minutes of which greater than 50% was spent on coordinating and counseling Patient has been found to be obese with a BMI of (62). Patient has class (3) obesity. We are a board certified obesity and weight management practice Patient has trialed behavioral modification, dietary restrictions and exercise for a minimum of 6 months The most recent [place] [employer] of clinical endocrinologists and [place] [employer] guidelines recommend patients who [...] software and direct typing Please excuse inadvertent instructor looping or typing errors, or uncorrected word substitutions Although every attempt has been made by the provider to proofread this document, occasional misspellings and typographical errors may still be present Due to the previous pandemic, and the use of personal protective equipment (PPE) This may decrease voice recognition accuracy Inadvertent instructor looping errors may occur 12/10/2024 Vitamin D deficiency (ICD-10 - E55.9) #Weight Management 12/10/2024 Will track down sleep study report Likely has obesity hypoventilation syndrome and GABRIELLA Will refer to bariatrics We discussed the new surmount GABRIELLA trial and indication for tirzepatide Total time spent today was 30 minutes of which greater than 50% was spent on coordinating and counseling Patient has been found to be obese with a BMI of (62). Patient has class (3) obesity. We are a board certified obesity and weight management practice Patient has trialed behavioral modification, dietary restrictions and exercise for a minimum of 6 months The most recent [place] [employer] of clinical endocrinologists and [place] [employer] guidelines recommend patients who [...] software and direct typing Please excuse inadvertent instructor looping or typing errors, or uncorrected word substitutions Although every attempt has been made by the provider to proofread this document, occasional misspellings and typographical errors may still be present Due to the previous pandemic, and the use of personal protective equipment (PPE) This may decrease voice recognition accuracy Inadvertent instructor looping errors may occur 08/05/2024 GABRIELLA (obstructive sleep apnea) (ICD-10 - G47.33) #Weight Management 06/04/2024 We discussed the new [place] GABRIELLA trial [...] minimum of 6 months The most recent [place] [employer] of clinical endocrinologists and [employer] endocrin[employer] guidelines recommend patients who [...] software and direct typing Please excuse inadvertent instructor looping or typing errors, or uncorrected word substitutions Although every attempt has been made by the provider to proofread this document, occasional misspellings and typographical errors may still be present Due to the previous pandemic, and the use of personal protective equipment (PPE) This may decrease voice recognition accuracy Inadvertent instructor looping errors may occur 08/05/2024 Daytime somnolence (ICD-10 - R40.0) #Weight Management 06/04/2024 We discussed the new [place] GABRIELLA trial [...] minimum of 6 months The most recent [place] [employer] of clinical endocrinologists and [employer] endocrin[employer] guidelines recommend patients who [...] software and direct typing Please excuse inadvertent instructor looping or typing errors, or uncorrected word substitutions Although every attempt has been made by the provider to proofread this document, occasional misspellings and typographical errors may still be present Due to the previous pandemic, and the use of personal protective equipment (PPE) This may decrease voice recognition accuracy Inadvertent instructor looping errors may occur 12/10/2024 GABRIELLA (obstructive sleep apnea) (ICD-10 - G47.33) #Weight Management 12/10/2024 Will track down sleep study report Likely has obesity hypoventilation syndrome and GABRIELLA Will refer to bariatrics We discussed the new [place] GABRIELLA trial and indication for tirzepatide Total time spent today was 30 minutes of which greater than 50% was spent on coordinating and counseling Patient has been found to be obese with a BMI of (62). Patient has class (3) obesity. We are a board certified obesity and weight management practice Patient has trialed behavioral modification, dietary restrictions and exercise for a minimum of 6 months The most recent [place] [employer] of clinical endocrinologists and [employer] end[employer]inology guidelines recommend patients who [...] software and direct typing Please excuse inadvertent instructor looping or typing errors, or uncorrected word substitutions Although every attempt has been made by the provider to proofread this document, occasional misspellings and typographical errors may still be present Due to the previous pandemic, and the use of personal protective equipment (PPE) This may decrease voice recognition accuracy Inadvertent instructor looping errors may occur 12/10/2024 Daytime somnolence (ICD-10 - R40.0) #Weight Management 12/10/2024 Will track down sleep study report Likely has obesity hypoventilation syndrome and GABRIELLA Will refer to bariatrics We discussed the new [place] GABRIELLA trial and indication for tirzepatide Total time spent today was 30 minutes of which greater than 50% was spent on coordinating and counseling Patient has been found to be obese with a BMI of (62). Patient has class (3) obesity. We are a board certified obesity and weight management practice Patient has trialed behavioral modification, dietary restrictions and exercise for a minimum of 6 months The most recent [place] [employer] of clinical endocrinologists and [employer] end[employer]inology guidelines recommend patients who [...] software and direct typing Please excuse inadvertent instructor looping or typing errors, or uncorrected word substitutions Although every attempt has been made by the provider to proofread this document, occasional misspellings and typographical errors may still be present Due to the previous pandemic, and the use of personal protective equipment (PPE) This may decrease voice recognition accuracy Inadvertent instructor looping errors may occur 08/05/2024 Snoring (ICD-10 - R06.83) #Weight Management 06/04/2024 We discussed the new [place] GABRIELLA trial [...] minimum of 6 months The most recent [place] [employer] of clinical endocrinologists and [employer] of endocrinology guidelines recommend patients who [...] software and direct typing Please excuse inadvertent instructor looping or typing errors, or uncorrected word substitutions Although every attempt has been made by the provider to proofread this document, occasional misspellings and typographical errors may still be present Due to the previous pandemic, and the use of personal protective equipment (PPE) This may decrease voice recognition accuracy Inadvertent instructor looping errors may occur 12/10/2024 Snoring (ICD-10 - R06.83) #Weight Management 12/10/2024 Will track down sleep study report Likely has obesity hypoventilation syndrome and GABRIELLA Will refer to bariatrics We discussed the new [place] GABRIELLA trial and indication for tirzepatide Total time spent today was 30 minutes of which greater than 50% was spent on coordinating and counseling Patient has been found to be obese with a BMI of (62). Patient has class (3) obesity. We are a board certified obesity and weight management practice Patient has trialed behavioral modification, dietary restrictions and exercise for a minimum of 6 months The most recent [place] [employer] of clinical endocrinologists and [employer] of end[employer]inology guidelines recommend patients who [...] software and direct typing Please excuse inadvertent instructor looping or typing errors, or uncorrected word substitutions Although every attempt has been made by the provider to proofread this document, occasional misspellings and typographical errors may still be present Due to the previous pandemic, and the use of personal protective equipment (PPE) This may decrease voice recognition accuracy Inadvertent instructor looping errors may occur 12/10/2024 Encounter for examination of blood pressure without abnormal findings (ICD-10 - Z01.30) #Weight Management 12/10/2024 Will track down sleep study report Likely has obesity hypoventilation syndrome and GABRIELLA Will refer to bariatrics We discussed the new [place] GABRIELLA trial and indication for tirzepatide Total time spent today was 30 minutes of which greater than 50% was spent on coordinating and counseling Patient has been found to be obese with a BMI of (62). Patient has class (3) obesity. We are a board certified obesity and weight management practice Patient has trialed behavioral modification, dietary restrictions and exercise for a minimum of 6 months The most recent [place] [employer] of clinical endocrinologists and [employer] of endocrinology guidelines recommend patients who [...] software and direct typing Please excuse inadvertent instructor looping or typing errors, or uncorrected word substitutions Although every attempt has been made by the provider to proofread this document, occasional misspellings and typographical errors may still be present Due to the previous pandemic, and the use of personal protective equipment (PPE) This may decrease voice recognition accuracy Inadvertent instructor looping errors may occur 06/04/2024 #Weight Management 06/04/2024 Euglycemic A1c today 5.3 Track down labs from [facility] Discussed weight loss options and bariatric surgical options Unfortunately where her insurance options are limited in terms of weight management medication based Total time spent today was 30 minutes of which greater than 50% was spent on coordinating and counseling Patient has been found to be obese with a BMI of (62). Patient has class (3) obesity. We are a board certified obesity and weight management practice Patient has trialed behavioral modification, dietary restrictions and exercise for a minimum of 6 months The most recent [place] [employer] of clinical endocrinologists and [employer] of endocrinology guidelines recommend patients who [...] software and direct typing Please excuse inadvertent instructor looping or typing errors, or uncorrected word substitutions Although every attempt has been made by the provider to proofread this document, occasional misspellings and typographical errors may still be present Due to the previous pandemic, and the use of personal protective equipment (PPE) This may decrease voice recognition accuracy Inadvertent instructor looping errors may occur 11/12/2024 #Weight Management 11/12/2024 We discussed the new [...] minimum of 6 months The most recent [place] [employer] of clinical endocrinologists and [employer] of endocrinology guidelines recommend patients who [...] software and direct typing Please excuse inadvertent instructor looping or typing errors, or uncorrected word substitutions Although every attempt has been made by the provider to proofread this document, occasional misspellings and typographical errors may still be present Due to the previous pandemic, and the use of personal protective equipment (PPE) This may decrease voice recognition accuracy Inadvertent instructor looping errors may occur Plan Of Treatment Pending Test Test Name Order Date 25OH VITAMIN D 09/05/2022 CBC (COMPLETE BLOOD COUNT) WITH DIFF COMPREHENSIVE METABOLIC PANEL 09/05/2022 HEMOGLOBIN A1C 09/05/2022 LIPID PANEL 09/05/2022 TSH WITH REFLEX TO FT4 09/05/2022 URINALYSIS W/REFLEX CULTURE 09/05/2022 VITAMIN B12 09/05/2022 INSULIN LEVEL 09/05/2022 Next Appt Details Provider Name:VERITO LEGER, 02/04/2025 11:00:00 AM, [address] [place] [address], [facility], [place], [address], Insurance Providers Payer Name Payer Address Payer Phone Subscriber Number Group Number Insured Name Patient Relationship to Insured Coverage Start Date Coverage End Date [employer] or Options [address] [place] [id number] Rajani Patten Self - patient is the insured
--- OUTSIDE RECORDS SUMMARY | 2025-01-27 06:28 | XMS_ITS | Clinical Summary ---
Author Organization [facility] Address [address] [place] [address] Phone Care Team Providers Care Deputy Of Counter Intelligence Name Role Phone Kane Yeager MD Primary Care Provider [phone] Allergies Active Allergy Reactions Criticality Noted Date Comments Soy 06/23/2021 Medications ketoconazole (NIZORAL) 2 % cream Apply topically 2 (two) times a day. 15 g 1 5 Active LORazepam (ATIVAN) 0.5 mg tablet Take 1-2 tablets (0.5-1 mg total) by mouth See administration instructions for 2 days. Take 30 minutes prior to procedure. 2 tablet 5 Active hydrocortisone 1 % topical cream Apply topically 2 (two) times a day. 30 g 5 026 Active gabapentin (NEURONTIN) 600 mg tablet TAKE 1 TABLET BY MOUTH THREE TIMES A DAY 90 tablet 1 5 Active diclofenac (VOLTAREN) 75 mg EC tablet TAKE 1 TABLET BY MOUTH 2 TIMES DAILY FOR 180 DAYS. 60 tablet 5 Active cyclobenzaprin e (FLEXERIL) 10 mg tabletIndicati ons:Chronic pain of both knees,Acute pain of left shoulder TAKE 1 TABLET BY MOUTH EVERYDAY AT BEDTIME 30 tablet 2 5 Active Active Problems Problem Noted Date Diagnosed Date Localized osteoarthritis of left shoulder 2024 Localized osteoarthritis of both knees 5 Class 3 severe obesity witho ut serious comorbidity with body mass index (BMI) of 60.0 to 69.9 in adult ([facility] V24, [facility] V28) 06/05/2024 Maternal morbid obesity in f irst trimester, antepartum ([facility] V24, [facility] V28) 10/18/2022 Overview (06/05/2024): 10/16/22 BMI 60.81 - pt needs to establish care at [facility] for BMI >50. Marijuana abuse 08/17/2010 Chronic bilateral low back pain 09/29/2008 Sacroiliitis, not elsewhere classified ([facility] V24) 09/21/2008 Overview (06/05/2024): 10/20 mri lumber thoracic-Mild degenerative disc disease at T11-12 and L1-2. Mild facet arthropathy at L4-5. Migraine with aura 10/24/2006 Overview (06/05/2024): had MRI in past Encounters Date Type Department Care Team Description 01/22/2025 9:00 AM EDT Nutrition Bariatric Surgery [address] [address] Gilda Frausto, LATISHA Class 3 severe obesity without serious comorbidity with body mass index (BMI) of 60.0 to 69.9 in adult, unspecified obesity type ([facility] V24, [facility] V28) (Primary Dx) 01/16/2025 12:45 PM EDT Office Visit Bariatric Surgery [address] [address] Kinza Solitario MD Morbid obesity with BMI of 60.0-69.9, adult ([facility] V24, [facility] V28) (Primary Dx); Sleep apnea, unspecified type; Weight gain 11/19/2024 Telephone Internal Medicine - [place] [address] [place] [id number] Kane Yeager MD 11/05/2024 Telephone Pediatrics - [facility] [address] [place] [address] Kane Yeager MD from Last 3 Months Immunizations Name Administration Dates Next Due DTP / HiB 08/01/2005 DTaP (Infanrix) 6wks to less than 7yo 04/18/2004 QTdZ-XEY-MSP (Pentacel) 2mo to less than 5yo 08/01/2005 HPV, Quadrivalent 04/18/2013, 1,01/04/2010,2008,05/17/2007 Hep B, Unspecified 08/01/2005 Hepatitis B (Ateyzkv-B-Tjllx , Recombivax HB-Adult) 19yo and older 12/24/2015,04/18/2013 MMR, measles mumps and rubel la Live (Priorix; M-M-R II) 12mo and older 12/24/2015,02/29/2012 RSV, bivalent, protein subun it RSVpreF, 0.5mL, Preservative Free (ABRYSVO) 60yo and older or 32 through 36 wks of 05/21/2023 Td, Unspecified 07/12/2005 Tdap Tetanus diptheria acell ular pertussis (Boostrix; Adacel) 7yo and older 04/24/2023,03/14/2020,09/30/2016,2015,04/18/2004 Surgical History Surgery Date Site/Laterality Comments OTHER SURGICAL HISTORY 2008 PROCEDURE: HISTORY OTHER; COMMENT: tube thoracostomy SECTION PROCEDURE: HISTORICAL DELIVERY Medical History Medical History Date Comments Class 3 severe obesity with serious comorbidity and body mass index (BMI) of 45.0 to 49.9 in adult ([facility] V24, [facility] V28) 10/24/2006 DX:Class 3 severe obesity wi th serious comorbidity and body mass index (BMI) of 45.0 to 49.9 in adult ([facility]); COMMENT: previous pcp liz [facility] [address] Marijuana abuse 08/17/2010 DX:Marijuana abu se Migraine with aura 10/24/2006 DX:Migraine w ith aura; COMMENT: had MRI in past IMO update Sacroiliitis, not elsewhere classified ([facility] V24) 09/21/2008 DX:Sacroiliitis, not elsewhe re classified (HCC); COMMENT: 10/20 mri lumber thoracic-Mild degenerative disc disease at T11-12 and L1-2. Mild facet arthropathy at L4-5. Chronic bilateral low back pain 09/29/2008 DX:Chronic bilateral low back pain History of abnormal cervical Pap smear 03/12/2010 DX:History of abnormal cervi ariana Pap smear; COMMENT: Per [facility] transfer records, no date given Family History Medical History Relation Name Comments No Known Problems Brother Breast cancer Maternal Grandmother HTN Diabetes Mother Hypertension Mother Other cancer Mother Multiple Myelom a No Known Problems Sister Relation Name Status Comments Brother Alive 1,healthy Father cueto snot know Maternal Grandmother Mother Sister Alive 2,one has hole in heart Social History Tobacco Use Types Packs/Day Years Used Date Smoking Tobacco: Never Smokeless Tobacco: Never Tobacco Cessation:Counseling Given: Not Answered Alcohol Use Standard Drinks/Week Comments No 0 (1 standard drink = 0.6 oz pur e alcohol) Comments No Sex and Gender Information Value Date Recorded Sex Assigned at Not on file Legal Sex Female 8:47 PM EST Gender Identity Not on file Sexual Orientation Not on file Obstetrics History Last Filed Vital Signs Vital Sign Reading Time Taken Comments Blood Pressure 136/81 01/16/2025 12:46 PM EDT Pulse 91 01/16/2025 12:46 PM EDT Temperature 36.6 C (97.8 F) 01/16/2025 12:46 PM EDT Respiratory Rate - - Oxygen Saturation 97% 07/01/2024 4:53 PM EST Inhaled Oxygen Concentration - - Weight 178 kg (392 lb) 01/22/2025 9:07 AM EDT Height 170.2 cm (5' 7 ) 01/16/2025 12:46 PM EDT Body Mass Index 61.4 01/16/2025 12:46 PM EDT Plan of Treatment Upcoming Encounters Date Type Department Care Team (Late st Contact Info) Description 04/28/2025 8:30 AM EST Nutrition Bariatric Surgery - [place] [address] [facility] [address] [place] [phone] Gilda Frausto, RD [address] [facility] [address] [place] [address] Health Maintenance Due Date Last Done Comments Hepatitis A Vaccines (1 of 2 - Risk 2-dose series) 2005 IPV Vaccines (2 of 3 - Adult catch-up series) 08/29/2005 08/01/2005 Cervical Cancer Screening: Pap Smear 03/11/2013 03/11/2010 Medicare Annual Wellness Visit 04/15/2022 Social Influencers of Health Screening 04/15/2022 Depression Screening 05/14/2024 COVID-19 Vaccine ( season) 2025 04/29/2022, 10/13/2020, 09/21/2020 Influenza Vaccine (#1) 2025 Cholesterol Screening (Lipid Panel) 08/09/2028 08/10/2023 DTaP,Tdap,and Td Vaccines (10 - Td or Tdap) 04/24/2033 04/24/2023, 09/27/2022, 03/14/2020, Additional history exists HIB Vaccines Aged Out 08/01/2005, 07/13, 08/01/2005 No longer eligible based on patient's age to complete this topic Hepatitis C Screening Completed 05/20/2008 HIV Screening Completed 03/10/2010 HPV Vaccines Completed 04/18/2013, 10/13, 01/04/2010, Additional history exists Hepatitis B Vaccines Completed 12/24/2015, 04/18/2013, 08/01/2005 MMR Vaccines Aged Out 12/24/2015, 02/29/2012 No lo nger eligible based on patient's age to complete this topic Meningococcal ACWY Vaccine Aged Out N o longer eligible based on patient's age to complete this topic Meningococcal B Vaccine Aged Out No l onger eligible based on patient's age to complete this topic Pneumococcal Vaccine: Pediatrics (0 to 5 Years) and At-Risk Patients (6 to 49 Years) Aged Out No longer eligible based on patient's age to complete this topic RSV Immunization Patients Under 20 months Aged Out No longer eligible based on patient's age to complete this topic Varicella Vaccines Aged Out No longer eligible based on patient's age to complete this topic Procedures Procedure Name Priority Date/Time Associated Diagnosis Comments LIPID PANEL Routine 08/10/2023 HM PAP SMEAR Routine 03/11/2010 HIV SCREENING Routine 03/10/2010 HEPATITIS C SCREENING Routine 05/20/2008 from Last 3 Months or Most Recently Relevant to Health Maintenance Results * (ABNORMAL) Lipid panel (08/10/2023) LDL/HDL Ratio 3 0 - 4 Triglycerides 89 0 - 150 mg/dL Cholesterol 216(A) 0 - 200 mg/dL HDL 84 >=40 mg/dL LDL Cholesterol 115(A) 0 - 100 mg/dL Blood Venous blood specimen / Unknown [facility] Provider LAB BLOOD ORDERABLES [place] l Result * Pap Smear (03/11/2010) Pathologist [facility] Pap smear no interpretation , abstracted [facility] Provider HEALTH MAINTENANCE Final Result * HIV Screening (03/10/2010) Pathologist [facility] HIV Screening abstracted [facility] Provider HEALTH MAINTENANCE Final Result * Hepatitis C Screening (05/20/2008) Pathologist [facility] Hepatitis C Screening abstracted [facility] Provider HEALTH MAINTENANCE Final Result from Last 3 Months or Most Recently Relevant to Health Maintenance Insurance [address]LOOR [address] [place] [id number] [facility] MEDICARE Member Subscriber Plan / Payer (Ef fective 2020-Present) Name:RAJANI KEY Relation to Subscriber:Self Name:Rajani Key Payer ID:[id number] Group ID:[id number] Type:Not on file Address: [place] [address] [place] [phone] [employer] on file Care Teams Deputy Of Counter Intelligence Relationship Specialty Start Date End Date Kane Yeager MD [address] [facility] [place] [address] PCP - General Internal Medicine 03/09/21
--- OUTSIDE RECORDS SUMMARY | 2025-01-27 06:28 | XMS_ITS | Encounter Summary ---
Author Organization [facility] Address [address] [place] [address] Care Team Providers Care Product Safety Head Name Role Phone Kane Yeager MD Primary Care Provider [phone] Encounter Details Date Type Department Care Team Description 06/28/2021 Release of Information Medical Records [address] [place] [address] Abstract, Provider Social History Tobacco Use Types Packs/Day Years Used Date Smoking Tobacco: Passive Smo ke Exposure - Never Smoker Cigarettes Quit: Smokeless Tobacco: Never Comments:quit 10-13-07 Alcohol Use Standard Drinks/Week Comments No 0 (1 standard drink = 0.6 oz pur e alcohol) Sex Assigned at Date Recorded Not on file Job Start Date Occupation Industry Not on file Not on file Not on file COVID-19 Exposure Response Date Recorded In the last month, have you been in contact with someone who was confirmed or suspected to have Coronavirus / COVID-19? No / Unsure 06/23/2021 1:38 PM EST documented as of this encounter Plan of Treatment Not on file documented as of this encounter Visit Diagnoses Not on filedocumented in this encounter Care Teams Product Safety Head Relationship Specialty Start Date End Date Kane Yeager MD [address] [place] [id number] PCP - General Internal Medicine 03/09/21 documented as of this encounter
== END 2025-01-27 06:26 | disposition home or self-care (01) ==
LOC: CF 06:25
PROVIDERS: Visit Provider Anesthesiology
DX: M53.3 Sacrococcygeal disorders, not elsewhere classified (principal); M46.1 Sacroiliitis, not elsewhere classified
CPT/HCPCS: 27096; J2003; J2795; Q9967

== ENCOUNTER 2025-01-27 10:41 | Outpatient (AMB) | payer OTHER, SELFPAY ==
[2025-01-27 10:46] VITALS: BP 110/63; PULSE 70; RESP 18; O2SAT 98
--- NOTE | 2025-01-27 10:46 | MHC.OFFVIS ---
Vital Signs 01/27/25 10:46 Weight 386 lb BP 110/63 Blood Pressure Location Lt brachial Position Sitting Respiration 18 Pulse 70 Pulse Source Pulse Oximeter Pulse Oximetry (%) 98 Oxygen Delivery Method Room Air Intake Visit Reasons: Bilateral Diagnostic SIJ Injection Site Medical Director Required: No Allergies No Known Allergies Allergy (Verified 12/03/24 15:34) [facility] Medical History (Updated 12/03/24 @ 16:12 by Stu Zimmerman MD) Back pain Morbid obesity Surgical History History of lung surgery Family History Mother Hypertension Diabetes Father No problems noted. Sister No problems noted. Sister No problems noted. Sister No problems noted. Brother No problems noted. Daughter No problems noted. Daughter No problems noted. Social History Household Members: Family and Children Alcohol intake: current Alcohol intake frequency: holidays/special occasions only Physical Exam Vital Signs: Last Vital Signs Pulse 70 01/27/25 10:46 Resp 18 01/27/25 10:46 BP 110/63 01/27/25 10:46 Pulse Ox 98 01/27/25 10:46 Oxygen Delivery Method Room Air 01/27/25 10:46 Assessment & Plan Assessment & Plan (1) Sacroiliac joint dysfunction of both sides: Code(s): M53.3 - Sacrococcygeal disorders, not elsewhere classified Category: Medical (2) Sacroiliitis: Code(s): M46.1 - Sacroiliitis, not elsewhere classified Category: Medical Plan Bilateral Diagnostic Sacroiliac joint injection. Informed consent was explained thoroughly to the patient.? All questions about benefits and risks for the procedure were answered. Patient came to the operating room and was positioned prone on the operating table with the pillow under the abdomen.? The lower back and buttocks of the patient were prepped with ChloraPrep prepped and draped with sterile utility towels.? Sterilely draped C-arm was brought over the operating field and sq picture of patient's pelvis was demonstrated on the screen.? For each joint tilting C-arm contralateral to the site of the joint the most posterior portion of the joints was superimposed with anterior silhouette of the joint.? Skin was injected in the projection of the joint slightly medial to the location of the joint with 25 gauge 1/2 inch needle using local lidocaine 2% mixed with ropivacaine 0.5% one to one. After that 22 gauge 3 and 1/2 inch needle was driven to the right and left joint in tunnel vision fashion.? When needle entered the joint capsule injection of the contrast was performed demonstrating intra-articular and minimally periarticular spread of the contrast.? After that 5 cc. of ropivacaine 0.5% was injected into each joint. Upon completion of the injections the needles were removed, Band-Aids were applied.? Upon completion of the injection patient was taken outside of the operating room to the recovery room where recovered uneventfully. Orders: Orders FL guidance in treatment room Today M53.3 - Sacrococcygeal disorders, not elsewhere classified Coding Level of Care Code Procedure Only Diagnoses Sacroiliac joint dysfunction of both sides M53.3 Sacroiliitis M46.1
--- OUTSIDE RECORDS SUMMARY | 2025-01-27 14:10 | XMS_ITS | Clinical Summary ---
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 Role Phone Unavailable Primary Care Provider Unavailabl e Medications medroxyPROGESTE Devin (Depo-Provera) 150 MG/ML injection Inject 1 mL into the shoulder, thigh, or buttocks every 3 (three) months Active gabapentin (NEURONTIN) 300 MG capsule Take 2 capsules by mouth 3 (three) times a day Active Active Problems Problem Noted Date Diagnosed Date Acute nontraumatic kidney injury 12/28/2020 Family History Relation Status Comments Father Mother Alive Social History Tobacco Use Types Packs/Day Years Used Date Smoking Tobacco: Never Comments Unknown Sex and Gender Information Value Date Recorded Sex Assigned at Not on file Legal Sex Female 4:58 PM EST Gender Identity Not on file Sexual Orientation Not on file Last Filed Vital Signs Vital Sign Reading Time Taken Comments Blood Pressure 128/61 06/09/2020 12:00 PM EST Pulse 66 06/09/2020 12:00 PM EST Temperature - - Respiratory Rate - - Oxygen Saturation 98% 06/09/2020 12:00 PM EST Inhaled Oxygen Concentration - - Weight 163 kg (358 lb 12.8 oz) 06/09/2020 12:00 PM EST Height - - Body Mass Index - - Plan of Treatment Health Maintenance Due Date Last Done Comments Hepatitis B Vaccine (1 of 3 - 19+ 3-dose series) 2005 Influenza Vaccine (#1) 2025 Pneumococcal Vaccine: Peds ( 0 to 5 Years) and At-Risk Patients (6 to 49 Years) Aged Out No longer eligible b ased on patient's age to complete this topic Insurance [place] [id number] [place] [id number]
== END 2025-01-27 11:01 | disposition home or self-care (01) ==
LOC: HO.PMCPRC 10:41
PROVIDERS: PCP Internal Medicine; Visit Provider Anesthesiology
DX: M53.3 Sacrococcygeal disorders, not elsewhere classified (principal); M46.1 Sacroiliitis, not elsewhere classified
CPT/HCPCS: 27096